=== PATIENT | female | born 1975 | race African-American/Black ===

== ENCOUNTER 2016-06-29 19:10 | Observation (INO) | payer OTHER ==
[~2016-06-29] VITALS: Ht 157.5 cm; Wt 58.2 kg
[2016-06-29] MEDS ORDERED: SODIUM CHLOR 0.9% 1000 ML INJ 1,000 ML IV SCH (19:18)
[2016-06-29] MEDS ORDERED: diphenhydrAMINE HCL 50 MG/ML VIAL IV PUSH ONE (19:30)
[2016-06-29] MEDS ORDERED: LORazepam 2 MG/ML VIAL IM ONE (19:30)
[2016-06-29] MEDS ORDERED: SODIUM CHLORIDE 0.9% FLUSH 10 ML FLUSH IVF PRN (19:30)
[2016-06-29] MEDS ORDERED: HALOPERIDOL LACTATE 5 MG/ML AMP IM ONE (19:30)
--- NOTE | 2016-06-29 19:37 | PD ---
HPI Chief Complaint: acute agitation Time Seen by Provider: 19:18 Travel History International Travel<30 days: No Contact w/Intl Traveler<30days: No (unable to be obtained) History of Present Illness HPI The patient is a 39 something year old appearing female who presents to the [facility] emergency department with a history of being Erickson acted prior to arrival when she was found at a local park, swimming area without clothing on. The patient became agitated, combative, barricaded herself into the bathroom best require physical removal and being Erickson acted for evaluation. The patient continues to be agitated, belligerent. On arrival the patient was restrained for her and the staff's safety. The patient was given medication for sedation. The patient was not able to provide any significant history. [facility] Past Medical History Narrative Medical The patient's past medical history is unknown. Past Surgical History Narrative Surgical The patient's past surgical history is not able to be obtained. Social History Narrative Social History The patient's social history is not able to be obtained. Tobacco Use: No Allergies-Medications (Allergen,Severity, Reaction): Coded Allergies: UNOBTAINABLE (Unverified , 06/29/16) Narrative Medication The patient's current medications are not able to be obtained. Review of Systems Except as stated in HPI: all other systems reviewed are Neg General / Constitutional: No: Fever Eyes: No: Visual changes HENT: No: Headaches Cardiovascular: No: Chest Pain or Discomfort Respiratory: No: Shortness of Breath Gastrointestinal: No: Abdominal Pain Genitourinary: No: Dysuria Musculoskeletal: No: Pain Skin: No Rash Neurologic: No: Weakness Psychiatric: No: Depression Endocrine: No: Polydipsia Hematologic/Lymphatic: No: Easy Bruising Physical Exam Narrative General: The patient is a well-developed well-nourished female, agitated on arrival, screaming, attempting to spit and had the staff. Head and Neck exam: Head is normocephalic atraumatic. Eyes: pupils are equal round and reactive to light. The patient is uncooperative with extraocular motion testing. Nose: Midline septum with pink mucous membranes Mouth: Dentition unremarkable. Moist mucus membranes. Posterior oropharynx is not erythematous. No tonsillar hypertrophy. Uvula midline. Airway patent. Neck: No palpable lymphadenopathy. No nuchal rigidity. No thyromegaly. Cardiovascular: Sinus tachycardia initially in the 130s without murmurs, gallops, or rubs. No pulse deficit to the extremities. Lungs: Clear to auscultation bilaterally. No wheezes, rhonchi, or rales. Abdomen: Soft, without tenderness to palpation in all 4 quadrants of the abdomen. No guarding, rebound, or rigidity. Normal bowel sounds are audible. Extremities: No clubbing, cyanosis, or edema. 2+ pulses in all 4 extremities. Less than 3 second capillary refill of the digits of the extremities Back: No costovertebral angle tenderness to palpation. Neurologic Exam: The patient is uncooperative with formal neurologic testing. The patient is belligerent. The patient has no evidence of facial asymmetry. She has equal movements with 5 over 5 strength in all extremities. She has intact sensation over her limbs. Skin Exam: No rash noted. Intact skin that is warm and dry. Data Data Orders Electrocardiogram (06/29/16 19:18) Ammonia (06/29/16:18) Complete Blood Count With Diff (06/29/16 19:18) Comprehensive Metabolic Panel (06/29/16 19:18) Creatine Kinase (Cpk) (06/29/16 19:18) Prothrombin Time / Inr (Pt) (06/29/16:18) Act Partial Throm Time (Ptt) (06/29/16 19:18) Thyroid Stimulating Hormone (06/29/16 19:18) Urinalysis - C+S If Indicated (06/29/16 19:18) Chest, Single Ap (06/29/16 19:18) Ct Brain W/O Iv Contrast(Rout) (06/29/16 19:18) Blood Glucose (06/29/16 19:18) Ecg Monitoring (06/29/16 19:18) Iv Access Insert/Monitor (06/29/16 19:18) Oximetry (06/29/16 19:18) Sodium Chloride 0.9% Flush (Ns Flush) (06/29/16 19:30) Sodium Chlor 0.9% 1000 Ml Inj (Ns 1000 M (06/29/16 19:18) Drug Screen, Random Urine (06/29/16 19:18) Alcohol (Ethanol) (06/29/16 19:18) Salicylates (Aspirin) (06/29/16 19:18) Tylenol (Acetaminophen) (06/29/16 19:18) Lorazepam Inj (Ativan Inj) (06/29/16 19:30) Haloperidol Inj (Haldol Inj) (06/29/16 19:30) Diphenhydramine Inj (Benadryl Inj) (06/29/16 19:30) Ed Urine Pregnancytest Poc (06/29/16 19:37) Psych Screen (06/29/16 19:37) Restraints Violent (06/29/16 19:37) Sodium Chlor 0.9% 1000 Ml Inj (Ns 1000 M (06/29/16 22:15) Admit Order (Ed Use Only) (06/29/16 22:09) Labs Laboratory Tests Test 06/29/16 06/29/16 19:20 19:30 White Blood Count 15.6 TH/MM3 Red Blood Count 4.61 MIL/MM3 Hemoglobin 13.2 GM/DL Hematocrit 41.4 % Mean Corpuscular Volume 89.8 FL Mean Corpuscular Hemoglobin 28.6 PG Mean Corpuscular Hemoglobin 31.9 % Concent Red Cell Distribution Width 15.6 % Platelet Count 293 TH/MM3 Mean Platelet Volume 11.3 FL Neutrophils (%) (Auto) 46.6 % Lymphocytes (%) (Auto) 39.0 % Monocytes (%) (Auto) 12.3 % Eosinophils (%) (Auto) 1.4 % Basophils (%) (Auto) 0.7 % Neutrophils # (Auto) 7.3 TH/MM3 Lymphocytes # (Auto) 6.1 TH/MM3 Monocytes # (Auto) 1.9 TH/MM3 Eosinophils # (Auto) 0.2 TH/MM3 Basophils # (Auto) 0.1 TH/MM3 CBC Comment AUTO DIFF Differential Total Cells 100 Counted Neutrophils % (Manual) 44 % Lymphocytes % 42 % Monocytes % 8 % Eosinophils % 4 % Basophils % 2 % Neutrophils # (Manual) 6.9 TH/MM3 Differential Comment FINAL DIFF MANUAL Platelet Estimate NORMAL Platelet Morphology Comment NORMAL Acanthocytes OCC Prothrombin Time 11.0 SEC Prothromb Time International 1.0 RATIO Ratio Activated Partial 21.7 SEC Thromboplast Time Sodium Level 144 MEQ/L Potassium Level 4.5 MEQ/L Chloride Level 109 MEQ/L Carbon Dioxide Level 20.6 MEQ/L Anion Gap 14 MEQ/L Blood Urea Nitrogen 12 MG/DL Creatinine 1.31 MG/DL Estimat Glomerular Filtration 42 ML/MIN Rate Random Glucose 147 MG/DL Calcium Level 9.6 MG/DL Total Bilirubin 0.9 MG/DL Aspartate Amino Transf 19 U/L (AST/SGOT) Alanine Aminotransferase 19 U/L (ALT/SGPT) Alkaline Phosphatase 83 U/L Ammonia 112 MCMOL/L Total Creatine Kinase 185 U/L Total Protein 8.5 GM/DL Albumin 4.1 GM/DL Thyroid Stimulating Hormone 1.150 uIU/ML 3rd Gen Salicylates Level 7.4 MG/DL Acetaminophen Level LESS THAN 2.0 MCG/ML Ethyl Alcohol Level LESS THAN 3 MG/DL Urine Color YELLOW Urine Turbidity CLEAR Urine pH 5.5 Urine Specific [place] 1.019 Urine Protein NEG mg/dL Urine Glucose (UA) NEG mg/dL Urine Ketones NEG mg/dL Urine Occult Blood NEG Urine Nitrite NEG Urine Bilirubin NEG Urine Urobilinogen LESS THAN 2.0 MG/DL Urine Leukocyte Esterase SMALL Urine RBC LESS THAN 1 /hpf Urine WBC 2 /hpf Urine Squamous Epithelial 1 /hpf Cells Urine Mucus FEW /lpf Microscopic Urinalysis Comment CATH-CULT NOT IND Urine Opiates Screen NEG Urine Barbiturates Screen NEG Urine Amphetamines Screen NEG Urine Benzodiazepines Screen NEG Urine Cocaine Screen NEG Urine Cannabinoids Screen NEG MDM Medical Decision Making Medical Screen Exam Complete: Yes Emergency Medical Condition: Yes Medical Record Reviewed: Yes Interpretation(s) Last Impressions Chest X-Ray 06/29/161917 Signed Impressions: Service Date/Time: Wednesday, June 29, 2016 19:26 - CONCLUSION: 1. No acute findings. Wan Peace MD Differential Diagnosis Acute psychosis with agitated delirium, versus substance induced mood disorder, versus illicit substance intoxication, versus withdrawal syndrome Narrative Course During the course of the patients emergency department visit, the patients history, examination, and differential diagnosis were reviewed with the patient. The patient had IV access obtained and blood work sent for analysis. The patient was placed in restraints for her and the staff's safety. The patient was provided Ativan 2 mg IV, Haldol milligrams IM, Benadryl 25 mg IV. The patient's Erickson act was reviewed. A psychiatric screen was ordered. The patient was started on normal saline 1 L IV fluid bolus. The patients laboratory studies were reviewed and remarkable for white count of 15.6, hemoglobin 13.2, platelets 293 with neutrophils 46.6, monocytes 12.3. Ammonia level is 112. Radiology studies were reviewed and remarkable for a chest x-ray shows no acute abnormality. The patient on repeat evaluation remains calmer. The patient initially on examination was sleeping after sedation, however she then became more awake and alert. The patient continues to be incoherent, unable to state her name, date of , or age. The patient will therefore be admitted to the medical service for continued monitoring. The patients results were discussed with the patient, including the plan of care. I explained that further testing and/ or monitoring is indicated based on the patients history, examination, and/ or laboratory findings. Therefore, I recommended admission for additional evaluation. The patient expressed understanding and was agreeable with this plan. The patient was admitted to the hospital in guarded condition and sent to a [facility]. Physician Communication Physician Communication The patient's case was discussed with Dr. Carlos who did agree to admit the patient for further evaluation and treatment at this time. Diagnosis Primary Impression: Altered mental state Qualified Code: R41.0 - Delirium Additional Impressions: Acute psychosis Increased ammonia level Admitting Information Admitting Physician Requests: Observation Rowena Gabriel MD Jun 29, 2016 19:37
[2016-06-29 19:59] LABS: AUTOMATED NEUTROPHIL # 7.3 TH/MM3 (1.8-7.7); BASOPHIL # 0.1 TH/MM3 (0-0.2); BASOPHIL % 0.7 % (0.0-2.0); EOSINOPHIL # 0.2 TH/MM3 (0-0.4); EOSINOPHIL % 1.4 % (0.0-4.0); HEMATOCRIT 41.4 % (35.0-46.0); LYMPHOCYTE # 6.1 TH/MM3 (1.0-4.8); MEAN CELL VOLUME 89.8 FL (80.0-100.0); MEAN CORPUSCULAR HEMOGLOBIN 28.6 PG (27.0-34.0); MEAN CORPUSCULAR HGB CONC 31.9 % (32.0-36.0); MONO % 12.3 % (0.0-8.0); NEUT % 46.6 % (16.0-70.0); PLATELET COUNT 293 TH/MM3 (150-450); RED BLOOD COUNT 4.61 MIL/MM3 (4.00-5.30); RED CELL DISTRIBUTION WIDTH 15.6 % (11.6-17.2); WHITE BLOOD COUNT 15.6 TH/MM3 (4.0-11.0)
[2016-06-29 20:10] LABS: HEMO FLAGS AUTO DIFF
--- NOTE | 2016-06-29 20:11 | RADRPT ---
EXAM DATE/TIME: 06/29/2016 19:26 [facility] COMPARISON: No previous studies available for comparison. INDICATIONS : Increase confusion. MEDICAL HISTORY : Unobtainable. SURGICAL HISTORY : Unobtainable. ENCOUNTER: Initial ACUITY: 1 day PAIN SCORE: Non-responsive. LOCATION: Bilateral chest FINDINGS: A single view of the chest demonstrates no focal consolidation. Mild scoliosis. No effusion. No pneum othorax. CONCLUSION: 1. No acute findings. Wan Peace MD on June 29, 2016 at 20:08 Board Certified Radiologist. This report was verified electronically.
[2016-06-29 20:16] LABS: APTT (PATIENT) 21.7 SEC (24.3-30.1)
[2016-06-29 20:26] LABS: BLOOD, URINE NEG (NEG); COMMENT (UR) CATH-CULT NOT IND; CULTURE IF INDICATED CATH CULTURE NOT IND; GLUCOSE,URINE NEG (NEG); KETONE, URINE NEG (NEG); MUCUS URINE FEW /lpf (OCC); NITRITE,URINE NEG (NEG); PH, URINE 5.5 (5.0-8.5); SQUAMOUS EPITHELIAL CELL URINE 1 /hpf (0-5); URINE COLOR YELLOW (YELLW/STRAW)
[2016-06-29 20:29] LABS: ANION GAP 14 MEQ/L (5-15); AST (GOT) 19 U/L (15-37); BICARBONATE 20.6 MEQ/L (21.0-32.0); BLOOD UREA NITROGEN 12 MG/DL (7-18); CHLORIDE 109 MEQ/L (98-107); GLOMERULAR FILTRATION RATE 42 ML/MIN (>89); POTASSIUM 4.5 MEQ/L (3.5-5.1); SODIUM (NA) 144 MEQ/L (136-145)
[2016-06-29 20:37] LABS: ACETAMINOPHEN LESS THAN 2.0 MCG/ML (10.0-30.0); ALKALINE PHOSPHATASE 83 U/L (45-117); ALT (GPT) 19 U/L (10-53); CREATINE KINASE 185 U/L (26-192); TOTAL BILIRUBIN ADULT 0.9 MG/DL (0.2-1.0)
[2016-06-29 20:52] LABS: BASOPHILS 2 % (0-2); EOSINOPHILS 4 % (0-4); NEUTROPHIL # MANUAL DIFF 6.9 TH/MM3 (1.8-7.7); POLYS (SEG NEUTROPHILS) 44 % (16-70); SCAN/DIFF FINAL DIFF MANUAL; WBC DIFF SAMPLE 100
[2016-06-29 20:53] LABS: ACANTHOCYTES OCC (NORMAL); PLATELET ESTIMATE SMEAR NORMAL (NORMAL); PLATELET MORPHOLOGY NORMAL (NORMAL)
[2016-06-29] MEDS ORDERED: SODIUM CHLORIDE 0.9% FLUSH 10 ML FLUSH IV FLUSH PRN (22:15)
[2016-06-29] MEDS ORDERED: LORazepam 2 MG/ML VIAL IV PUSH ONE (22:15)
[2016-06-29] MEDS ORDERED: SODIUM CHLOR 0.9% 1000 ML INJ 1,000 ML IV ONE (22:15)
[2016-06-29] MEDS ORDERED: NALOXONE HCL 0.4 MG/ML AMP IV PRN (22:15)
[2016-06-29 22:29] LABS: AMPHETAMINE, URINE NEG (NEG); BARBITURATES, URINE NEG (NEG); COCAINE, URINE NEG (NEG)
[2016-06-30] VITALS (7 sets, daily range): BP systolic 108–155; BP diastolic 65–85; PULSE 63–106; RESP 14–18; TEMP 95.4–98.1; O2SAT 97–100
[2016-06-30] MEDS: SODIUM CHLOR 0.9% 1000 ML INJ 1,000 ML IV SCH ×3 (02:27→20:43)
[2016-06-30 06:10] LABS: HEMATOCRIT 32.7 % (35.0-46.0); MEAN CELL VOLUME 88.4 FL (80.0-100.0); MEAN CORPUSCULAR HEMOGLOBIN 29.9 PG (27.0-34.0); MEAN CORPUSCULAR HGB CONC 33.9 % (32.0-36.0); PLATELET COUNT 230 TH/MM3 (150-450); RED CELL DISTRIBUTION WIDTH 15.6 % (11.6-17.2); WHITE BLOOD COUNT 10.9 TH/MM3 (4.0-11.0)
[2016-06-30 06:12] LABS: HEMO FLAGS AUTO DIFF
[2016-06-30 06:16] LABS: BICARBONATE 21.8 MEQ/L (21.0-32.0); POTASSIUM 3.9 MEQ/L (3.5-5.1)
[2016-06-30 07:04] LABS: POLYS (SEG NEUTROPHILS) 55 % (16-70); WBC DIFF SAMPLE 100
[2016-06-30 07:05] LABS: PLATELET ESTIMATE SMEAR NORMAL (NORMAL); PLATELET MORPHOLOGY NORMAL (NORMAL); ROULEAUX PRESENT (NORMAL); SCAN/DIFF FINAL DIFF MANUAL
[2016-06-30] MEDS: SODIUM CHLORIDE 0.9% FLUSH 10 ML FLUSH IV FLUSH SCH ×2 (07:59→20:43)
--- NOTE | 2016-06-30 08:02 | RADRPT ---
EXAM DATE/TIME: 06/30/2016 07:47 [facility] COMPARISON: No previous studies available for comparison. INDICATIONS : Altered mental status. RADIATION DOSE: 45.27 CTDIvol (mGy) MEDICAL HISTORY : Non-responsive. SURGICAL HISTORY : Non-responsive. ENCOUNTER: Initial ACUITY: 1 day PAIN SCALE: Non-responsive LOCATION: cranial TECHNIQUE: Multiple contiguous axial images were obtained of the head. Using automated exposure control and adj ustment of the mA and/or kV according to patient size, radiation dose was kept as low as reasonably a chievable to obtain optimal diagnostic quality images. FINDINGS: CEREBRUM: The ventricles are normal for age. No evidence of midline shift, mass lesion, hemorrhage or acute in farction. No extra-axial fluid collections are seen. POSTERIOR FOSSA: The cerebellum and brainstem are intact. The 4th ventricle is midline. The cerebellopontine angle i s unremarkable. EXTRACRANIAL: The visualized portion of the orbits is intact. SKULL: The calvaria is intact. No evidence of skull fracture. CONCLUSION: Negative for an acute process.. Raul Torres MD FACR on June 30, 2016 at 7:59 Board Certified Radiologist. This report was verified electronically.
--- NOTE | 2016-06-30 08:28 | HHI.HP ---
HPI [facility] Primary Care Physician No Primary Care Physician Admission Diagnosis AMS Diagnoses: Chief Complaint: Altered mental status Travel History International Travel<30 Days: No Contact w/Intl Traveler <30 Da: No (unable to be obtained) Traveled to Known Affected Are: No History of Present Illness Patient appears to be a middle age woman who came in under Erickson act after being found at [place] without clothing. On the report, the patient became agitated, combative, barricaded herself in the bathroom requiring physical removal and being Erickson acted for further evaluation. Upon arrival to the hospital, patient continues to be belligerent and agitated she was given Ativan, Haldol, Benadryl and placed on restraints for her safety and staff safety. Patient continues to be drowsy and lethargic, moans and groans with tactile and painful stimulation, partly opening her eyes but unable to respond to any questions or commands. As per RN, patient just came back from [place] , and she was just restrained. Previous labs showed leukocytosis, WBC 15.6, repeat WBC 10.9, repeat CBC showed slight anemia possibly due to hemodilution secondary to IV fluid hydration since admission. U tox negative. Previous ammonia level CXII, repeat ammonia levels 11:00 last night 21. Previous creatinine 1.31, repeat creatinine 0.63. Otherwise, repeat labs is unremarkable. Review of Systems ROS Limitations: Clinical Condition, Altered Mental Status Past Family Social History Past Medical History Unable to obtain this time Past Surgical History Unable to obtain this time Reported Medications Unable to obtain this time Allergies: Coded Allergies: UNOBTAINABLE (Unverified , 06/29/16) Active Ordered Medications Unable to obtain Family History Unable to obtain this time Social History Unable to obtain this time Physical Exam Vital Signs Vital Signs Date Time Temp Pulse Resp B/P Pulse Ox O2 Delivery O2 Flow Rate FiO2 06/30/16 07:56 63 16 155/83 100 Room Air 06/30/16 03:27 73 16 134/85 99 Room Air Physical Exam GENERAL: This is a well-nourished, unkempt, in no apparent distress. SKIN: No rashes, ecchymoses or lesions. Warm and dry. HEAD: Atraumatic. Normocephalic. No temporal or scalp tenderness. EYES: Pupils equal round and reactive. No scleral icterus. No injection or drainage. ENT: Nose without bleeding. Throat without erythema. Uvula midline. Airway patent. NECK: Trachea midline. No JVD or lymphadenopathy. CARDIOVASCULAR: Regular rate and rhythm without murmurs, gallops, or rubs. RESPIRATORY: Coarse breath sounds Breath sounds equal bilaterally. No wheezes, rales, or rhonchi. GASTROINTESTINAL: Abdomen soft, non-tender, nondistended. Hypoactive bowel sounds MUSCULOSKELETAL: Extremities without clubbing, cyanosis, or edema. NEUROLOGICAL: Lethargic. Moans and groans and moving side to side to Tactile and painful stimulation. Unable to follow commands. Moves all extremities. Laboratory Laboratory Tests Test 06/29/16 06/29/16 06/29/16 06/30/16 19:20 19:30 23:20 05:26 White Blood Count 15.6 10.9 Red Blood Count 4.61 3.70 Hemoglobin 13.2 11.1 Hematocrit 41.4 32.7 Mean Corpuscular Volume 89.8 88.4 Mean Corpuscular Hemoglobin 28.6 29.9 Mean Corpuscular Hemoglobin 31.9 33.9 Concent Red Cell Distribution Width 15.6 15.6 Platelet Count 293 230 Mean Platelet Volume 11.3 11.3 Neutrophils (%) (Auto) 46.6 Lymphocytes (%) (Auto) 39.0 Monocytes (%) (Auto) 12.3 Eosinophils (%) (Auto) 1.4 Basophils (%) (Auto) 0.7 Neutrophils # (Auto) 7.3 Lymphocytes # (Auto) 6.1 Monocytes # (Auto) 1.9 Eosinophils # (Auto) 0.2 Basophils # (Auto) 0.1 CBC Comment AUTO DIFF AUTO DIFF Differential Total Cells 100 100 Counted Neutrophils % (Manual) 44 55 Lymphocytes % 42 29 Monocytes % 8 16 Eosinophils % 4 Basophils % 2 Neutrophils # (Manual) 6.9 6.0 Differential Comment FINAL DIFF FINAL DIFF MANUAL MANUAL Platelet Estimate NORMAL NORMAL Platelet Morphology Comment NORMAL NORMAL Acanthocytes OCC Prothrombin Time 11.0 Prothromb Time International 1.0 Ratio Activated Partial 21.7 Thromboplast Time Sodium Level 144 145 Potassium Level 4.5 3.9 Chloride Level 109 115 Carbon Dioxide Level 20.6 21.8 Anion Gap 14 8 Blood Urea Nitrogen 12 7 Creatinine 1.31 0.63 Estimat Glomerular Filtration 42 99 Rate Random Glucose 147 83 Calcium Level 9.6 8.5 Total Bilirubin 0.9 Aspartate Amino Transf 19 (AST/SGOT) Alanine Aminotransferase 19 (ALT/SGPT) Alkaline Phosphatase 83 Ammonia 112 21 Total Creatine Kinase 185 Total Protein 8.5 Albumin 4.1 Thyroid Stimulating Hormone 1.150 3rd Gen Salicylates Level 7.4 Acetaminophen Level LESS THAN 2.0 Ethyl Alcohol Level LESS THAN 3 Urine Color YELLOW Urine Turbidity CLEAR Urine pH 5.5 Urine Specific [place] 1.019 Urine Protein NEG Urine Glucose (UA) NEG Urine Ketones NEG Urine Occult Blood NEG Urine Nitrite NEG Urine Bilirubin NEG Urine Urobilinogen LESS THAN 2.0 Urine Leukocyte Esterase SMALL Urine RBC LESS THAN 1 Urine WBC 2 Urine Squamous Epithelial 1 Cells Urine Mucus FEW Microscopic Urinalysis Comment CATH-CULT NOT IND Urine Opiates Screen NEG Urine Barbiturates Screen NEG Urine Amphetamines Screen NEG Urine Benzodiazepines Screen NEG Urine Cocaine Screen NEG Urine Cannabinoids Screen NEG Rouleau PRESENT Result Diagram: 06/30/16 0526 06/30/16525 Imaging Last Impressions Head CT 06/30/161917 Signed Impressions: Service Date/Time: Thursday, June 30, 2016 07:47 - CONCLUSION: Negative for an acute process.. Raul Torres MD FACR Chest X-Ray 06/29/161917 Signed Impressions: Service Date/Time: Wednesday, June 29, 2016 19:26 - CONCLUSION: 1. No acute findings. Wan Peace MD Assessment and Plan Problem List: (1) Increased ammonia level ICD Code: R79.89 Status: Acute (2) Acute psychosis ICD Code: F23 Status: Acute (3) BEAU (acute kidney injury) ICD Code: N17.9 Status: Acute Assessment and Plan Patient appears to be a middle age woman who came in under Erickson act after being found at [place] without clothing. On the report, the patient became agitated, combative, barricaded herself in the bathroom requiring physical removal and being Erickson acted for further evaluation. Upon arrival to the hospital, patient continues to be belligerent and agitated she was given Ativan, Haldol, Benadryl and placed on restraints for her safety and staff safety. Acute psychosis - Under Erickson act - CT of the head negative for an acute process - Labs reviewed, Previous labs showed leukocytosis, WBC 15.6, repeat WBC 10.9 , repeat CBC showed slight anemia possibly due to hemodilution secondary to IV fluid hydration since admission. Previous ammonia level 112, repeat ammonia levels 21. - U tox negative. UA negative. - Psych for evaluation - Ativan when necessary for agitation. Otherwise, decrease sedation to further evaluate patient. - Neurochecks Elevated ammonia level - Ammonia level 112, repeat 21 - Continue to monitor BEAU - Previous creatinine 1.31 --> 0.63 - Continue IV fluid hydration Anemia, normocytic, normochromic - Monitor H&H - May possibly be hemodilution all secondary to patient has been given IV fluid hydration and previous H&H is within normal DVT prop SCD Discussed with nursing, Dr. Gibson Written by Sallie Taylor, on behalf of Dr. Gibson on 06/30/16 at 08:27. Code Status Not able to ask for this one at this time is Full code. Discussed Condition With Nursing, Dr. Gibson Medical Decision Making MDM Remarks Seen in Emergency room and discussed with [employer]PER[employer]OR Miss Doyle appreciated, agree with management Sallie Morataya Jun 30, 2016 08:28 Fortunato Lyons MD Jun 30, 2016 11:09
[2016-06-30] MEDS ORDERED: LORazepam 2 MG/ML VIAL IV PUSH PRN ×2 (09:00→16:30)
[2016-06-30] MEDS ORDERED: HALOPERIDOL LACTATE 5 MG/ML AMP IM PRN (16:30)
--- NOTE | 2016-06-30 16:33 | PD.CONS ---
Provisional Diagnosis Admission Date Jun 29, 2016 at 22:10 [place] I. Unspecified psychosis [place] II. Deferred History of Present Illness Service Psychiatry Consult Requested By Primary Care Physician No Primary Care Physician HPI The patient is a 39 something year old appearing woman, or known social circumstances, with no psychiatric and medical history, who presents to the [facility] emergency department with a history of being Erickson acted prior to arrival when she was found at a local park, swimming area without clothing on. The patient became agitated, combative, barricaded herself into the bathroom best require physical removal and being Erickson acted for evaluation. The patient continues to be agitated, belligerent non-cooperative. On arrival the patient was restrained for her and the staff's safety. The patient was given medication for sedation. Patient was seen for psychiatric evaluation in the ER, patient was found naked in her bed, very disorganized, no providing any information, seems to be internally preoccupied, guarded paranoid , selectively mute, sometimes she laughs inappropriately and mumble some intangible words. Labs were reviewed, these seems to be unremarkable, toxicology is negative, the only significant finding to the moment is prolonged QTc interval 493ms. Review of Systems ROS Limitations: Unresponsive, Uncooperative Past Family Social History Coded Allergies: UNOBTAINABLE (Unverified , 06/29/16) Current Medications Medications (Trade) Dose Ordered Sig/Sean Route Start Time Stop Time Status Last Admin (NS 1000 ml Inj) 1,000 ml @ 100 mls/hr Q10H IV 06/29/16 22:08 06/30/16 08:18 (NS Flush) 2 ml UNSCH PRN IV FLUSH 06/29/16 22:15 (NS Flush) 2 ml BID IV FLUSH 06/30/16 09:00 (Narcan Inj) 0.4 mg UNSCH PRN IV 06/29/16 22:15 (Ativan Inj) 1 mg Q4H PRN IV PUSH 06/30/16 09:00 Physical Exam Vital Signs Vital Signs Date Time Temp Pulse Resp B/P Pulse Ox O2 Delivery O2 Flow Rate FiO2 06/30/16 12:19 69 17 117/70 100 Room Air 06/30/16 10:35 98.1 Mental Status Examination Limited due to the level of uncooperativeness Appearance woman, disheveled, very malodorous, very dirty, uncooperative, agitated Speech: Incoherent Assessment & Plan Problem List: (1) Acute psychosis Assessment & Plan: Patient definitely internally preoccupied, paranoid, guarded disorganized, laughing inappropriately in fat psychotic. But, no providing any significant information for the psychiatric assessment at this moment. Patient definitely needs psychiatric hospitalization for stabilization. She can be transfer to the psychiatric unit once medically clear , or could be transferred to [facility] is medical care is is still needed. Toxicology is negative, but substance-induced psychosis is is still a possibility, maybe K2 or [place]. We did not have at this moment any information about her psychiatric history. I will start Abilify 5 mg at bedtime for psychosis, Abilify is the least probable antipsychotic to increase QTC. Her QTC is 493. For agitation or aggressive behavior Will order Ativan 2 mg IM/IV every 2 hours when necessary. We'll follow-up in the floor. ICD Code: F23 Assessment & Plan Estimated LOS: Rick Gray MD Jun 30, 2016 16:33
[2016-06-30] MEDS ORDERED: HALOPERIDOL 5 MG TAB PO SCH (21:00)
[2016-06-30] MEDS ORDERED: ARIPiprazole 5 MG TAB PO SCH (21:00)
--- NOTE | 2016-06-30 22:33 | EKG ---
Date Performed: 06/29/2016 Time Performed: 22:03:14 PTAGE: 89 years EKG: SINUS TACHYCARDIA RIGHT ATRIAL ENLARGEMENT NONSPECIFIC T-WAVE ABNORMALITY ABNORMAL ECG NO PREVIOUS TRACING DOCTOR: Henrique Lopez Interpretating Date/Time 06/30/2016 22:32:46
[2016-07-01] VITALS (8 sets, daily range): BP systolic 99–122; BP diastolic 57–80; PULSE 69–86; RESP 16–20; TEMP 96.2–98.3; O2SAT 91–100
[2016-07-01] MEDS: SODIUM CHLOR 0.9% 1000 ML INJ 1,000 ML IV SCH ×2 (04:08→14:08)
--- NOTE | 2016-07-01 08:12 | HHI.PR ---
Subjective Remarks This is a pleasant Female Patient who was admitted under Erickson Act after being found at [employer] swimming without clothing On the report, the patient became agitated, combative, barricaded herself in the bathroom requiring physical removal and being Erickson acted for further evaluation. Upon arrival to the hospital, patient continues to be belligerent and agitated she was given Ativan, Haldol, Benadryl and placed on restraints for her safety and staff safety. Patient continues to be drowsy and lethargic, moans and groans with tactile and painful stimulation, partly opening her eyes but unable to respond to any questions or commands. 07/01: Seen by Psychiatry specialist recommended Inpatient Psychiatric unit admission, Medically cleared for discharge No Nausea, vomit or diarrhea, Nurse Miss Suresh states no needs at this time. Objective Vital Signs Date Time Temp Pulse Resp B/P Pulse Ox O2 Delivery O2 Flow Rate FiO2 07/01/16 04:00 96.2 71 18 110/69 97 07/01/16 02:47 85 07/01/16 00:01 98 07/01/16 00:00 97.6 84 18 122/80 91 06/30/16 20:00 95.4 82 18 135/79 100 06/30/16 16:26 97.4 67 17 108/65 100 06/30/16 12:19 69 17 117/70 100 Room Air 06/30/16 10:35 102 16 100 Room Air 06/30/16 10:35 98.1 106 18 125/81 100 Room Air 06/30/16 09:34 63 14 116/77 97 Room Air I/O 06/30/16 06/30/16 06/30/16 07/01/16 07/01/16 07/01/16 07:00 15:00 23:00 07:00 15:00 23:00 Intake Total 200 ml 480 ml Balance 200 ml 480 ml Intake Oral 200 ml 480 ml # Voids 2 1 # Bowel Movements 0 Result Diagram: 06/30/1652506/30/16525 Imaging Last Impressions Head CT 06/30/161917 Signed Impressions: Service Date/Time: Thursday, June 30, 2016 07:47 - CONCLUSION: Negative for an acute process.. Raul Torres MD FACR Chest X-Ray 06/29/161917 Signed Impressions: Service Date/Time: Wednesday, June 29, 2016 19:26 - CONCLUSION: 1. No acute findings. Wan Peace MD Procedures No procedures performed Other Results Laboratory Tests Test 06/29/16 06/29/16 06/29/16 06/30/16 19:20 19:30 23:20 05:26 Eosinophils % 4 % Basophils % 2 % Acanthocytes OCC Prothrombin Time 11.0 SEC Prothromb Time International 1.0 RATIO Ratio Activated Partial 21.7 SEC Thromboplast Time Total Bilirubin 0.9 MG/DL Aspartate Amino Transf 19 U/L (AST/SGOT) Alanine Aminotransferase 19 U/L (ALT/SGPT) Alkaline Phosphatase 83 U/L Total Creatine Kinase 185 U/L Total Protein 8.5 GM/DL Albumin 4.1 GM/DL Thyroid Stimulating Hormone 1.150 uIU/ML 3rd Gen Salicylates Level 7.4 MG/DL Acetaminophen Level LESS THAN 2.0 MCG/ML Ethyl Alcohol Level LESS THAN 3 MG/DL Urine Color YELLOW Urine Turbidity CLEAR Urine pH 5.5 Urine Specific [place] 1.019 Urine Protein NEG mg/dL Urine Glucose (UA) NEG mg/dL Urine Ketones NEG mg/dL Urine Occult Blood NEG Urine Nitrite NEG Urine Bilirubin NEG Urine Urobilinogen LESS THAN 2.0 MG/DL Urine Leukocyte Esterase SMALL Urine RBC LESS THAN 1 /hpf Urine WBC 2 /hpf Urine Squamous Epithelial 1 /hpf Cells Urine Mucus FEW /lpf Microscopic Urinalysis Comment CATH-CULT NOT IND Urine Opiates Screen NEG Urine Barbiturates Screen NEG Urine Amphetamines Screen NEG Urine Benzodiazepines Screen NEG Urine Cocaine Screen NEG Urine Cannabinoids Screen NEG Ammonia 21 MCMOL/L White Blood Count 10.9 TH/MM3 Red Blood Count 3.70 MIL/MM3 Hemoglobin 11.1 GM/DL Hematocrit 32.7 % Mean Corpuscular Volume 88.4 FL Mean Corpuscular Hemoglobin 29.9 PG Mean Corpuscular Hemoglobin 33.9 % Concent Red Cell Distribution Width 15.6 % Platelet Count 230 TH/MM3 Mean Platelet Volume 11.3 FL Neutrophils (%) (Auto) % Lymphocytes (%) (Auto) % Monocytes (%) (Auto) % Eosinophils (%) (Auto) % Basophils (%) (Auto) % Neutrophils # (Auto) TH/MM3 Lymphocytes # (Auto) TH/MM3 Monocytes # (Auto) TH/MM3 Eosinophils # (Auto) TH/MM3 Basophils # (Auto) TH/MM3 CBC Comment AUTO DIFF Differential Total Cells 100 Counted Neutrophils % (Manual) 55 % Lymphocytes % 29 % Monocytes % 16 % Neutrophils # (Manual) 6.0 TH/MM3 Differential Comment FINAL DIFF MANUAL Platelet Estimate NORMAL Platelet Morphology Comment NORMAL Rouleau PRESENT Sodium Level 145 MEQ/L Potassium Level 3.9 MEQ/L Chloride Level 115 MEQ/L Carbon Dioxide Level 21.8 MEQ/L Anion Gap 8 MEQ/L Blood Urea Nitrogen 7 MG/DL Creatinine 0.63 MG/DL Estimat Glomerular Filtration 99 ML/MIN Rate Random Glucose 83 MG/DL Calcium Level 8.5 MG/DL Objective Remarks GENERAL: No Distress. SKIN: No rashes, ecchymoses or lesions. Warm and dry. HEAD: Atraumatic. Normocephalic. No temporal or scalp tenderness. EYES: No scleral icterus. No injection or drainage. ENT: supple, no JVD. CARDIOVASCULAR: Regular rate and rhythm without murmurs, gallops, or rubs. RESPIRATORY: Clear to auscultation bilateral. MUSCULOSKELETAL: Extremities without clubbing, cyanosis, or edema. NEUROLOGICAL: Somnolent do not want to talk with attending. Medications and IVs Current Medications Medications (Trade) Dose Ordered Sig/Sean Route Start Time Stop Time Status Last Admin (NS 1000 ml Inj) 1,000 ml @ 100 mls/hr Q10H IV 06/29/16 22:08 07/01/16 04:08 (NS Flush) 2 ml UNSCH PRN IV FLUSH 06/29/16 22:15 (NS Flush) 2 ml BID IV FLUSH 06/30/16 09:00 (Narcan Inj) 0.4 mg UNSCH PRN IV 06/29/16 22:15 (Ativan Inj) 1 mg Q4H PRN IV PUSH 06/30/16 09:00 (Haldol Inj) 5 mg Q6H PRN IM 06/30/16 16:30 (Ativan Inj) 2 mg Q6H PRN IV PUSH 06/30/16 16:30 (Abilify) 5 mg HS PO 06/30/16 21:00 06/30/16 20:44 A/P Assessment and Plan 1. Acute Psychosis, as per Psychiatry specialist: definitely internally preoccupied, paranoid, guarded disorganized, laughing inappropriately in fact psychotic. But, no providing any significant information for the psychiatric assessment at this moment. Patient definitely needs psychiatric hospitalization for stabilization. She can be transfer to the psychiatric unit once medically clear, or could be transferred to [facility] is medical care is is still needed. Toxicology is negative, but substance-induced psychosis is is still a possibility, maybe K2 or Flakka. We did not have at this moment any information about her psychiatric history. I will start Abilify 5 mg at bedtime for psychosis, Abilify is the least probable antipsychotic to increase QTC. Her QTC is 493. For agitation or aggressive behavior Will order Ativan 2 mg IM/IV every 2 hours when necessary. We'll follow-up in the floor. As per Doctor Rick Cody. Continue Erickson act. CT Brain negative for acute process. 2. Acute Kidney Injury Improved. DVT prop SCD Discussed with Museum Specialist Discharge Planning Transfer to Inpatient Psychiatric Unit. Fortunato Lyons MD Jul 01, 2016 08:12 - Ammonia level 112, repeat 21 - Continue to monitor BEAU - Previous creatinine 1.31 --> 0.63 - Continue IV fluid hydration Anemia, normocytic, normochromic - Monitor H&H - May possibly be hemodilution all secondary to patient has been given IV fluid hydration and previous H&H is within normal DVT prop SCD Discussed with nursing, Dr. Gibson Written by Sallie Taylor, on behalf of Dr. Gibson on 06/30/16 at 08:27. Code Status Not able to ask for this one at this time is Full code. Discussed Condition With Nursing, Dr. Gibson Medical Decision Making MDM Remarks Seen in Emergency room and discussed with [facility] Miss Vivek monae, agree with management Sallie Morataya Jun 30, 2016 08:28 Fortunato Lyons MD Jun 30, 2016 11:09 Addendum: Fortunato Lyons MD on 06/30/16 @ 16:11 I have seen patient Marivel [id number] on 06/30/16, performed face-face visit, performed history and physical exam, provided all the assessment and plan of treatment. Fortunato Lyons MD Jul 01, 2016 08:12
--- NOTE | 2016-07-01 08:48 | HHI.DS ---
Discharge Summary Admission Date Jun 29, 2016 at 22:10 Discharge Date: Jul 01, 2016 Admitting Diagnosis AMS (1) Acute psychosis ICD Code: F23 Diagnosis: Principal (2) BEAU (acute kidney injury) ICD Code: N17.9 Diagnosis: Principal Procedures No procedures performed. Brief History - From Admission Patient appears to be a middle age woman who came in under Erickson act after being found at [employer] [place] without clothing. On the report, the patient became agitated, combative, barricaded herself in the bathroom requiring physical removal and being Erickson acted for further evaluation. Upon arrival to the hospital, patient continues to be belligerent and agitated she was given Ativan, Haldol, Benadryl and placed on restraints for her safety and staff safety. Patient continues to be drowsy and lethargic, moans and groans with tactile and painful stimulation, partly opening her eyes but unable to respond to any questions or commands. As per RN, patient just came back from [place] , and she was just restrained. Previous labs showed leukocytosis, WBC 15.6, repeat WBC 10.9, repeat CBC showed slight anemia possibly due to hemodilution secondary to IV fluid hydration since admission. U tox negative. Previous ammonia level CXII, repeat ammonia levels 11:00 last night 21. Previous creatinine 1.31, repeat creatinine 0.63. Otherwise, repeat labs is unremarkable. CBC/BMP: 06/30/16 0526 06/30/16 0526 Significant Findings Laboratory Tests Test 06/29/16 06/29/16 06/30/16 19:20 19:30 05:26 White Blood Count 15.6 TH/MM3 (4.0-11.0) Mean Corpuscular Hemoglobin 31.9 % Concent (32.0-36.0) Mean Platelet Volume 11.3 FL 11.3 FL (7.0-11.0) (7.0-11.0) Monocytes (%) (Auto) 12.3 % (0.0-8.0) Lymphocytes # (Auto) 6.1 TH/MM3 (1.0-4.8) Monocytes # (Auto) 1.9 TH/MM3 (0-0.9) Acanthocytes OCC (NORMAL) Activated Partial 21.7 SEC Thromboplast Time (24.3-30.1) Chloride Level 109 MEQ/L 115 MEQ/L (98-107) (98-107) Carbon Dioxide Level 20.6 MEQ/L (21.0-32.0) Creatinine 1.31 MG/DL (0.50-1.00) Estimat Glomerular Filtration 42 ML/MIN (>89) Rate Random Glucose 147 MG/DL (74-106) Ammonia 112 MCMOL/L (11-32) Total Protein 8.5 GM/DL (6.4-8.2) Acetaminophen Level LESS THAN 2.0 MCG/ML (10.0-30.0) Urine Leukocyte Esterase SMALL (NEG) Urine Mucus FEW /lpf (OCC) Red Blood Count 3.70 MIL/MM3 (4.00-5.30) Hemoglobin 11.1 GM/DL (11.6-15.3) Hematocrit 32.7 % (35.0-46.0) Monocytes % 16 % (0-8) Rouleau PRESENT (NORMAL) Imaging Last Impressions Head CT 06/30/161917 Signed Impressions: Service Date/Time: Thursday, June 30, 2016 07:47 - CONCLUSION: Negative for an acute process.. Raul Torres MD FACR Chest X-Ray 06/29/161917 Signed Impressions: Service Date/Time: Wednesday, June 29, 2016 19:26 - CONCLUSION: 1. No acute findings. Wan Peace MD PE at Discharge GENERAL: No Distress. SKIN: No rashes, ecchymoses or lesions. Warm and dry. HEAD: Atraumatic. Normocephalic. No temporal or scalp tenderness. EYES: No scleral icterus. No injection or drainage. ENT: supple, no JVD. CARDIOVASCULAR: Regular rate and rhythm without murmurs, gallops, or rubs. RESPIRATORY: Clear to auscultation bilateral. MUSCULOSKELETAL: Extremities without clubbing, cyanosis, or edema. NEUROLOGICAL: Somnolent do not want to talk with attending. Hospital Course This is a pleasant Female Patient who was admitted under Erickson Act after being found at [employer] [place] without clothing On the report, the patient became agitated, combative, barricaded herself in the bathroom requiring physical removal and being Erickson acted for further evaluation. Upon arrival to the hospital, patient continues to be belligerent and agitated she was given Ativan, Haldol, Benadryl and placed on restraints for her safety and staff safety. Patient continues to be drowsy and lethargic, moans and groans with tactile and painful stimulation, partly opening her eyes but unable to respond to any questions or commands. 07/01: Seen by Psychiatry specialist recommended Inpatient Psychiatric unit admission, Medically cleared for discharge No Nausea, vomit or diarrhea, Nurse Miss Suresh states no needs at this time. Assessment and Plan 1. Acute Psychosis, as per Psychiatry specialist: definitely internally preoccupied, paranoid, guarded disorganized, laughing inappropriately in fact psychotic. But, no providing any significant information for the psychiatric assessment at this moment. Patient definitely needs psychiatric hospitalization for stabilization. She can be transfer to the psychiatric unit once medically clear, or could be transferred to [facility] is medical care is is still needed. Toxicology is negative, but substance-induced psychosis is is still a possibility, maybe K2 or Flakka. We did not have at this moment any information about her psychiatric history. I will start Abilify 5 mg at bedtime for psychosis, Abilify is the least probable antipsychotic to increase QTC. Her QTC is 493. For agitation or aggressive behavior Will order Ativan 2 mg IM/IV every 2 hours when necessary. We'll follow-up in the floor. As per Doctor Rick Cody. Continue Erickson act. CT Brain negative for acute process. 2. Acute Kidney Injury Improved. DVT prop SCD Discussed with Ladle Pourer Discharge Planning Transfer to Inpatient Psychiatric Unit. Pt Condition on Discharge: Stable Discharge Disposition: Disc to Psych Care Fac Discharge Time: <= 30 minutes Discharge Instructions DIET: Follow Instructions for: As Tolerated, No Restrictions Activities you can perform: Regular-No Restrictions Fortunato Lyons MD Jul 01, 2016 08:48
[2016-07-01] MEDS: SODIUM CHLORIDE 0.9% FLUSH 10 ML FLUSH IV FLUSH SCH (09:00)
--- NOTE | 2016-07-01 11:07 | HHI.PYPN ---
Subjective Remarks Patient seen for psychiatric evaluation and the medical floor today, patient continues to be guarded, very paranoid, internally preoccupied, disorganized. She says that she doesn't have to talk with me because she doesn't trust anybody , but god. Patient states that she knows her right "because I have a master, a PhD and I am a genius". Patient says that she has living in the street for a long time now, she has family but she doesn't want to contact. She refused to provide identification data stating that "I had changed my name several times because there are people following me to kill me". She denies suicidal and homicidal ideation, she denies visual and auditory hallucinations. She does say that she will take the Abilify and medications "to get better". Patient does not cooperate with brief cognitive assessment. Patient does not seem to be agitated, she is verbally hostile and irritable, but not aggressive behavior has been reported. Review of Systems Other No significant somatic complaints at this moment Objective Alert: Yes [place]: Person Mood: Angry Affect: Restricted, Blunted Memory Intact: Immediate, Comment (no formally assessed) Hallucinations: Other (she denies) Delusions: Yes Delusion Type: Paranoid, Other (grandeur and hyperreligious) Suicidal: Ideation (she denies) Homicidal: Ideation (she denies) Insight/Judgment Poor Vitals/IOs Vital Signs Date Time Temp Pulse Resp B/P Pulse Ox O2 Delivery O2 Flow Rate FiO2 07/01/16 08:00 97.3 69 20 99/58 98 06/30/16 12:19 Room Air Intake and Output 06/30/16 06/30/16 07/01/16 08:00 16:00 00:00 Intake Total 200 ml 480 ml Balance 200 ml 480 ml Assessment & Plan Problem List: (1) Acute psychosis Assessment & Plan: On psychiatric evaluation today patient continues to be floridly psychotic with marked paranoia, disorganized behavior and thought. Patient seems to have a poor contact with reality and decreased a ego boundaries. Will continue Abilify 5 mg, which patient took yesterday. Will try to avoid medications that increased QTc interval as much as possible, QTc interval yesterday was 493ms. CT scan reviewed, without any acute findings. Renal clearance now is improved. Extensive support, motivation psycho education provided. Patient can be transferred to psychiatry. ICD Code: F23 Assessment & Plan Estimated LOS: days Justification for Cont. Inpt. Patient is acutely psychotic and needs psychiatric hospitalization for stabilization. Rick Cody MD Jul 01, 2016 11:07
== END 2016-07-01 20:55 ==
LOC: EDBD → NEPE 19:10 → NEDA 22:10 → INTOOBSV 22:10 → NEDA 06-30 03:13 → N05A 06-30 13:32
PROVIDERS: ADMIT Internal Medicine; ATTEND Internal Medicine
DX: F23 Brief psychotic disorder (principal); R41.0 Disorientation, unspecified; R45.1 Restlessness and agitation; R00.0 Tachycardia, unspecified; Z78.1 Physical restraint status; D72.829 Elevated white blood cell count, unspecified; R53.83 Other fatigue; N17.9 Acute kidney failure, unspecified; R79.89 Other specified abnormal findings of blood chemistry; D64.9 Anemia, unspecified; I45.81 Long QT syndrome
CPT/HCPCS: 70450; 71010; 80048; 80053; 80307; 81001; 82140; 82550; 84443; 84703; 85007; 85027; 85610; 85730; 93005; 96361; 96372; 96374; 99285; G0378; J1200; J1630; J2060; J7030

== ENCOUNTER 2016-07-01 21:00 | Inpatient (IN) | payer OTHER, MEDICARE ==
[~2016-07-01] VITALS: Ht 175.3 cm; Wt 59.1 kg
[2016-07-01 21:00] VITALS: BP 113/68; PULSE 80; RESP 18; TEMP 98.1; O2SAT 97
[2016-07-01] MEDS ORDERED: LORazepam 2 MG/ML VIAL IM PRN (23:45)
[2016-07-01] MEDS ORDERED: traZODone HCL 50 MG TAB PO PRN (23:45)
[2016-07-01] MEDS ORDERED: ALUMINUM/MAGNESIUM/SIMETH 30 ML CUP PO PRN (23:45)
[2016-07-01] MEDS ORDERED: MAGNESIUM HYDROXIDE SUSP 30 ML CUP PO PRN (23:45)
[2016-07-01] MEDS ORDERED: LORazepam 1 MG TAB PO PRN (23:45)
[2016-07-02 06:08] VITALS: BP 119/62; PULSE 90; RESP 18; TEMP 98.3; O2SAT 98
[2016-07-02] MEDS: NICOTINE 21 MG/24 HR PATCH T-DERMAL SCH (09:00)
--- NOTE | 2016-07-02 12:04 | HHI.PYPN ---
Subjective Remarks Remains agitated, oppositional, emotionally labile and psychotic. Patient not responding adequately to antipsychotics or mood stabilizing medicines yet. Review of Systems ROS Limitations: Clinical Condition Objective Alert: Yes [place]: Person Mood: Agitated Affect: Labile Memory Intact: Immediate, Recent, Remote Hallucinations: Other Delusions: Yes Delusion Type: Other Suicidal: Ideation Homicidal: Ideation Insight/Judgment Impaired. Vitals/IOs Vital Signs Date Time Temp Pulse Resp B/P Pulse Ox O2 Delivery O2 Flow Rate FiO2 07/02/16 06:08 98.3 90 18 119/62 98 Assessment & Plan Problem List: (1) Acute psychosis ICD Code: F23 Assessment & Plan Estimated LOS: 7 days patient needs more time on antipsychotic medication for stabilization. Justification for Cont. Inpt. Psychotic, confused and agitated. Arjun Amador MD Jul 02, 2016 12:04
[2016-07-02] MEDS ORDERED: LORazepam 2 MG/ML VIAL ONE (12:56)
[2016-07-02] MEDS ORDERED: diphenhydrAMINE HCL 50 MG/ML VIAL ONE (12:56)
[2016-07-02] MEDS ORDERED: ZIPRASIDONE MESYLATE 20 MG VIAL IM ONE (12:57)
--- NOTE | 2016-07-02 16:03 | HHI.HP ---
Provisional Diagnosis Admission Date Jul 01, 2016 at 21:00 [place] I. Schizophrenia, paranoid type Certification of Person's Competence To Provide Express and Informed Consent I have personally examined Melida Riggs , a person being served at [facility] on, Jul 02, 2016 15:55. Express and informed consent means consent voluntarily given in writing, by a competent person, after sufficient explanation and disclosure of the subject matter involved to enable the person to make a knowing and willful decision without any element of force, fraud, deceit, duress, or other form of constraint or coercion. This person is 18 years of age or older, is not now known to be incompetent to consent to treatment with a guardian advocate, and does not have a health care surrogate or proxy currently making medical treatment decisions. I have found this person to be one of the following: [] Competent to provide express and informed consent, as defined above, for voluntary admission to this facility and is competent to provide express and informed consent for treatment. He/she has the consistent capacity to make well reasoned, willful, and knowing decisions concerning his or her medical or mental health treatment. The person fully and consistently understands the purpose of the admission for examination/placement and is fully capable of personally exercising all rights assured under [place] [X] Incompetent to provide express and informed consent to voluntary admission, and this is incompetent to provide express and informed consent to treatment. The person must be transferred to involuntary status and a petition for a guardian advocate filed with the Circuit Court. [] Refusing to provide express and informed consent to voluntary admission but is competent to provide express and informed consent for treatment. The person must be discharged or transferred to involuntary status. Form shall be completed within 24 hours of a person's arrival at the receiving facility and filed in the clinical record of each person: 1. Admitted on a voluntary basis 2. Permitted to provide express and informed consent to his/her own treatment 3. Allowed to transfer from involuntary to voluntary status 4. Prior to permitting a person to consent to his or her own treatment after having been previously found incompetent to consent to treatment. History of Present Illness Capacity: Lacks Capacity HPI 41-year-old female admitted under a Marivel Cary as the patient was too psychotic and uncooperative to gather information. She is telling the staff at this facility that we are all going to hel and that we should enjoy it there. She is unable to provide any type of cogent history apparently she does have a history of mental illness. She was Erickson acted here by Dr. Olmstead for psychosis. She was also apparently disorganized and confused. There is however a lack of information regarding the history of how she arrived. Apparently Dr. Olmstead did a consult while the patient was found skinny dipping at [employer] and barricading herself in the bathroom. She had been repeatedly agitated and combative and required injectable Ativan, Haldol and Benadryl as well as restraints. At this time the patient is eating but once again required injectable medication for her agitation which included Geodon, Ativan and Benadryl. She is unable or refusing to provide further information to this physician. Review of Systems ROS Limitations: Clinical Condition Past Psych History Psychological trauma history Unknown Violence risk - others (6 mos) Moderate Violence risk - self (6 mos) Moderate Substance Abuse History Drugs/Alcohol past 12 months Denied Past Family Social History Coded Allergies: UNOBTAINABLE (Unverified , 06/29/16) Current Medications Medications (Trade) Dose Ordered Sig/Sean Route Start Time Stop Time Status Last Admin (Ativan) 1 mg Q6H PRN PO 07/01/16 23:45 (Ativan Inj) 1 mg Q6H PRN IM 07/01/16 23:45 (Desyrel) 50 mg HS PRN PO 07/01/16 23:45 (Tylenol) 650 mg Q4H PRN PO 07/01/16 23:45 (Milk Of Magnesia Liq) 30 ml DAILY PRN PO 07/01/16 23:45 (Mag-Al Plus Susp Liq) 30 ml Q6H PRN PO 07/01/16 23:45 (Habitrol 21 Mg Patch.24 Hr) 1 patch DAILY T-DERMAL 07/02/16 09:00 Miscellaneous Information 1 HS T-DERMAL 07/02/16 21:00 (Abilify) 5 mg HS PO 07/02/16 21:00 Family History Unknown. Refused by patient Social History Unknown. Refused by patient Patient's Strengths (min. 2) Resilient and has access to healthcare. Physical Exam GENERAL: SKIN: Warm and dry. HEAD: Normocephalic. EYES: No scleral icterus. No injection or drainage. NECK: Supple, trachea midline. No JVD or lymphadenopathy. CARDIOVASCULAR: Regular rate and rhythm without murmurs, gallops, or rubs. RESPIRATORY: Breath sounds equal bilaterally. No accessory muscle use. GASTROINTESTINAL: Abdomen soft, non-tender, nondistended. MUSCULOSKELETAL: No cyanosis, or edema. BACK: Nontender without obvious deformity. No CVA tenderness. Vital Signs Vital Signs Date Time Temp Pulse Resp B/P Pulse Ox O2 Delivery O2 Flow Rate FiO2 07/02/16 06:08 98.3 90 18 119/62 98 Mental Status Examination Speech: Incoherent Orientation: Person Memory: Unremarkable Thought Process: Loose Association Thought Content: Bizarre thinking, Paranoid Hallucination Type: Auditory Attention and Concentration: Easily Distracted Suicidal Ideation: Yes Previous Suicide Attempts: No Homicidal Ideation: No Previous Homicide Attempts: No Insight: Poor Judgment: WNL, Poor Affect: Oppositional Affect if Inappropriate: Labile Mood: Oppositional Motor Activity: Normal gait Assessment & Plan Problem List: (1) Acute psychosis ICD Code: F23 Assessment & Plan Estimated LOS: 7 days this physician consulted with the nurse regarding the patient's recent behavior. I am asking the mental health social worker to contact any relative or facility thatthe patient's background. Additionally, she will be evaluated and observed for appropriate medications. This physician notes the elevated QTc interval on her EKG. She has received only emergency medical medicines thus far. We will evaluate her for antipsychotic therapy on a more consistent basis. It's anticipated she'll be in the hospital for 1 week. Arjun Amador MD Jul 02, 2016 16:03
[2016-07-02 17:39] VITALS: BP 96/63; PULSE 74; RESP 16; TEMP 98.8; O2SAT 99
[2016-07-02] MEDS ORDERED: ARIPiprazole 5 MG TAB PO SCH ×2 (21:00→22:00)
[2016-07-02] MEDS: REMOVE OLD NICOTINE PATCH T-DERMAL SCH (21:00)
[2016-07-02 21:26] VITALS: BP 96/63; PULSE 74; RESP 16; TEMP 98.8
[2016-07-02] MEDS ORDERED: LORazepam 2 MG/ML VIAL IM PRN (22:00)
[2016-07-02] MEDS: traZODone HCL 50 MG TAB PO PRN (22:05)
[2016-07-02] MEDS: LORazepam 1 MG TAB PO PRN (22:05)
[2016-07-03 05:37] VITALS: BP 105/64; PULSE 76; RESP 16; TEMP 98.3; O2SAT 96
[2016-07-03] MEDS: NICOTINE 21 MG/24 HR PATCH T-DERMAL SCH (08:48)
--- NOTE | 2016-07-03 15:20 | HHI.PYPN ---
Subjective Remarks Patient was seen and case discussed with nursing. Patient is very delusional and oppositional for the interview. Refuses to make eye contact and is looking out the window. She is irritable and guarded. Answering most questions by reflecting them onto me. Talking about her vibrator. Denies suicidal ideation intent or plan Objective Alert: Yes [place]: Person Mood: Agitated Affect: Labile Memory Intact: Immediate, Recent, Remote Hallucinations: Other (responding to internal stimuli) Delusions: Yes Delusion Type: Other (bizarre) Suicidal: Ideation Homicidal: Ideation Insight/Judgment Poor Vitals/IOs Vital Signs Date Time Temp Pulse Resp B/P Pulse Ox O2 Delivery O2 Flow Rate FiO2 07/03/16 05:37 98.3 76 16 105/64 96 Assessment & Plan Problem List: (1) Acute psychosis ICD Code: F23 Assessment & Plan Increase Abilify to 15 mg daily at bedtime Justification for Cont. Inpt. Patient will decompensate in a less restrictive setting Teo Bermudez DO Jul 03, 2016 15:20
[2016-07-03] MEDS ORDERED: ZIPRASIDONE MESYLATE 20 MG VIAL IM ONE ×2 (15:45→15:46)
[2016-07-03] MEDS ORDERED: diphenhydrAMINE HCL 50 MG/ML VIAL IM ONE (15:45)
[2016-07-03] MEDS ORDERED: LORazepam 2 MG/ML VIAL IM ONE (15:45)
[2016-07-03] MEDS ORDERED: diphenhydrAMINE HCL 50 MG/ML VIAL ONE (15:46)
[2016-07-03] MEDS ORDERED: ARIPiprazole 15 MG TAB PO SCH (21:00)
[2016-07-03] MEDS: REMOVE OLD NICOTINE PATCH T-DERMAL SCH (21:00)
[2016-07-04 05:54] VITALS: BP 114/63; PULSE 81; RESP 18; TEMP 98.7; O2SAT 98
[2016-07-04] MEDS: NICOTINE 21 MG/24 HR PATCH T-DERMAL SCH (09:22)
--- NOTE | 2016-07-04 14:52 | HHI.PYPN ---
Subjective Remarks Patient was seen and case discussed with nursing. Patient remains on no medications well we are waiting for consent. She is guarded and evasive and oppositional during the interview. Poor eye contact. Mood is irritable and patient is short. Denies psychotic symptoms but seen responding to herself Objective Alert: Yes [place]: Person, Place Mood: Oppositional Affect: Labile Memory Intact: Immediate, Recent, Remote Hallucinations: Other (responding to internal stimuli) Delusions: Yes Delusion Type: Other (responding to self) Suicidal: Ideation Homicidal: Ideation Insight/Judgment Poor Vitals/IOs Vital Signs Date Time Temp Pulse Resp B/P Pulse Ox O2 Delivery O2 Flow Rate FiO2 07/04/16 05:54 98.7 81 18 114/63 98 Assessment & Plan Problem List: (1) Acute psychosis ICD Code: F23 Assessment & Plan Patient's Erickson act is up and she does not have capacity for insight to be voluntary we will start a petition Justification for Cont. Inpt. Patient will decompensate in a less restrictive setting Teo Bermudez DO Jul 04, 2016 14:52
[2016-07-04 15:18] VITALS: BP 112/58; PULSE 89; RESP 18; TEMP 98.1; O2SAT 98
[2016-07-04] MEDS: REMOVE OLD NICOTINE PATCH T-DERMAL SCH (21:00)
[2016-07-05] MEDS: NICOTINE 21 MG/24 HR PATCH T-DERMAL SCH (09:00)
--- NOTE | 2016-07-05 11:27 | PD.CONS ---
Provisional Diagnosis Admission Date Jul 01, 2016 at 21:00 [place] I. 1. Brief psychotic disorder Rule out primary psychotic disorder. Rule out mood disorder with psychotic features. Rule out psychotic disorder due to a substance not detected by standard urine toxicology. Rule out resolving delirium due perhaps to hyperammonemia. [place] II. Deferred [place] V. GAF is 40 presently History of Present Illness Service Psychiatry Consult Requested By Dr. Amador Reason for Consult Second opinion for involuntary psychiatric hospitalization Primary Care Physician Unknown HPI From Dr. Amador's H&P: 41-year-old female admitted under a Marivel [place] as the patient was too psychotic and uncooperative to gather information. She is telling the staff at this facility that we are all going to hel and that we should enjoy it there. She is unable to provide any type of cogent history apparently she does have a history of mental illness. She was Erickson acted here by Dr. Olmstead for psychosis. She was also apparently disorganized and confused. There is however a lack of information regarding the history of how she arrived. Apparently Dr. Olmstead did a consult while the patient was found skinny dipping at [facility] and barricading herself in the bathroom. She had been repeatedly agitated and combative and required injectable Ativan, Haldol and Benadryl as well as restraints. At this time the patient is eating but once again required injectable medication for her agitation which included Geodon, Ativan and Benadryl. She is unable or refusing to provide further information to this physician. On my examination today: Patient seen and examined with nurse and counselor. Chart reviewed. I note the patient was brought in initially with altered mental status and was medically admitted and seen in consultation by Dr. Cody. She was receiving small doses of Abilify on the medical floor, although this agent is currently on hold for lack of consent. Case discussed with nurse on the inpatient psychiatric unit. On my examination today, the patient seems more linear and logical then notes from the medical floor would suggest. She tells me that she has been "holding stuff in" referring to some sort of emotional distress. She says that she has been listening to much to other people's problems. She feels that her main problem is smoking cigarettes. She also notes that her mood is somewhat depressed. Her appetite is poor. She denies any suicidal or homicidal thoughts. She denies any audiovisual hallucinations, and I can elicit no frankly delusional beliefs at this time although the nursing staff does say that the patient was somewhat paranoid and watchful overnight. No hypomanic or manic symptoms noted. The remainder of the psychiatric ROS is negative. The patient is presently willing to sign into the hospital voluntarily for treatment. Past psychiatric history: Patient reports a questionable history of schizophrenia, she is unsure of the diagnosis. She does say that she was following with Miguel A over at [facility] and was previously prescribed Abilify, but she cannot afford this medication she says. She says that she has drunk bleach in the past in a suicide attempt. Unclear if she has any prior history of psychiatric admissions. She does report a good response to Seroquel in the past. Family history: Patient is unsure of family history. Chemical dependency history: Patient reports intermittent use of alcohol. She also smokes cigarettes. She denies any other substance use. Social history: Patient reports that she is presently homeless but is on the wait list for some sort of housing. She is with 3 children she says. She has a GED and also pursued some community college in the past. She does some work at a hotel. She does have a history of care home. No reported access to guns or firearms. Review of Systems ROS Limitations: Poor Historian Except as stated in HPI: all other systems reviewed are Neg Past Family Social History Coded Allergies: UNOBTAINABLE (Unverified , 06/29/16) Past Medical History Patient reports that she carry sickle cell trait but does not have sickle cell disorder. See electronic medical record. Current Medications Medications (Trade) Dose Ordered Sig/Sean Route Start Time Stop Time Status Last Admin (Tylenol) 650 mg Q4H PRN PO 07/01/16 23:45 (Milk Of Magnesia Liq) 30 ml DAILY PRN PO 07/01/16 23:45 (Mag-Al Plus Susp Liq) 30 ml Q6H PRN PO 07/01/16 23:45 (Habitrol 21 Mg Patch.24 Hr) 1 patch DAILY T-DERMAL 07/02/16 09:00 07/05/16 09:00 Miscellaneous Information 1 HS T-DERMAL 07/02/16 21:00 (Ativan) 1 mg Q6H PRN PO 07/02/16 22:00 07/02/16 22:05 (Ativan Inj) 1 mg Q6H PRN IM 07/02/16 22:00 (Desyrel) 50 mg HS PRN PO 07/02/16 22:15 07/02/16 22:05 (Abilify) 15 mg HS PO 07/03/16 21:00 Hold Family History See above Social History See above Patient's Strengths (min. 2) In a monitored setting. Verbally fluent. Physical Exam Physical examination completed by ED provider. On my examination today, patient appears to be in no acute physical distress. She is well-nourished and well-developed. I do note that she has several gold teeth. No motor abnormalities noted. No signs of withdrawal noted. Laboratories and vital signs reviewed: Vital Signs Vital Signs Date Time Temp Pulse Resp B/P Pulse Ox O2 Delivery O2 Flow Rate FiO2 07/04/16 15:18 98.1 89 18 112/58 98 Lab Results Item Value Date Time White Blood Count 10.9 TH/MM3 06/30/16 0526 Hemoglobin 11.1 GM/DL L # 06/30/16 0526 Platelet Count 230 TH/MM3 06/30/16 0526 Sodium Level 145 MEQ/L 06/30/16 0526 Potassium Level 3.9 MEQ/L 06/30/16 0526 Chloride Level 115 MEQ/L H 06/30/16 0526 Carbon Dioxide Level 21.8 MEQ/L 06/30/16 0526 Blood Urea Nitrogen 7 MG/DL 06/30/16 0526 Creatinine 0.63 MG/DL 06/30/16 0526 Estimat Glomerular Filtration Rate 99 ML/MIN 06/30/16 0526 Aspartate Amino Transf (AST/SGOT) 19 U/L 06/29/16 1920 Alanine Aminotransferase (ALT/SGPT) 19 U/L 06/29/16 1920 Alkaline Phosphatase 83 U/L 06/29/16 1920 Ammonia 21 MCMOL/L 06/29/16 2320 Thyroid Stimulating Hormone 3rd Gen 1.150 uIU/ML 06/29/16 192 Ammonia level was significantly elevated initially. Urine toxicology was negative. Alcohol level undetectable. Head CT read as no acute disease. Urinalysis fairly bland. ED [id number] test was negative. Mental Status Examination Patient is in hospital gown. She is fairly well groomed and maintaining basic hygiene. She is awake and alert and oriented to person and hospital at least. No evidence of delirium. No motor abnormalities noted. Speech is within normal limits for rate, tone and volume. Language and fund of knowledge seem average. Mood is somewhat depressed and affect is blunted. Thought process somewhat circumstantial. No loosening of associations. No alise delusional material. No AVH. Denies suicidal or homicidal ideation. Insight and judgment seem fair presently. Assessment & Plan Problem List: (1) Acute psychosis ICD Code: F23 Assessment & Plan I am assuming care of patient's case. Patient is presently willing to sign into the hospital voluntarily, and I horse show judge that she is capacitated to do so. I will instruct the nursing staff to have the patient signed voluntary paperwork. The patient reports that she couldn't afford the Abilify she was previously on but has done well with Seroquel in the past. I will start Seroquel 50 mg twice daily for psychosis, which appears to be slowly improving on its own anyway. Continue Ativan as needed for anxiety, add Cogentin as needed for EPS, continue trazodone as needed for sleep. Vitals every shift. Counselor to see and obtain collateral. I will check an H&H to ensure the patient's anemia has not worsening, although I suspect this was dilutional is also lines decreased. Continue to monitor on the high acuity unit. Continue other medications and care as ordered. Discharge Planning Pending psychiatric stabilization. Request HC Surrog/Guard Advoc?: No Abdirahman Henley MD Jul 05, 2016 11:27
[2016-07-05] MEDS ORDERED: BENZTROPINE MESYLATE 1 MG TAB PO PRN (12:00)
[2016-07-05] MEDS ORDERED: BENZTROPINE MESYLATE 2 MG/2 ML VIAL IM PRN (12:00)
[2016-07-05] MEDS: QUEtiapine FUMARATE 25 MG TAB PO SCH ×2 (20:53→22:30)
[2016-07-05] MEDS: traZODone HCL 50 MG TAB PO PRN (20:54)
[2016-07-05 21:00] VITALS: BP 125/78; PULSE 100; RESP 18; TEMP 98.5; O2SAT 95
[2016-07-05] MEDS: REMOVE OLD NICOTINE PATCH T-DERMAL SCH (21:00)
[2016-07-06 06:00] VITALS: BP 99/57; PULSE 86; RESP 18; TEMP 97; O2SAT 97
[2016-07-06] MEDS: NICOTINE 21 MG/24 HR PATCH T-DERMAL SCH (08:59)
[2016-07-06] MEDS: QUEtiapine FUMARATE 25 MG TAB PO SCH ×3 (08:59→23:00)
--- NOTE | 2016-07-06 11:08 | HHI.PYPN ---
Subjective Remarks Patient seen and examined with counselor and nurse. Chart reviewed. Case discussed with counselor, nurse and occupational therapist in treatment team. Per nursing staff, patient seems much improved from the last time nurse had contact with the patient over the weekend. Occupational therapist reports that the patient self describes as somewhat asocial but has been participating appropriately in interactions with occupational therapist. On my examination today, the patient is out for fresh air. She feels improved on the Seroquel. She denies any suicidal or homicidal ideation. She denies any audiovisual hallucinations. She says that she slept well overnight. I have recommended an EKG to follow-up on the QTC issue, but the patient is somewhat hesitant. I have provided education regarding the concerns about QTC prolongation. Review of Systems Except as stated in HPI: all other systems reviewed are Neg Objective Alert: Yes [place]: Person, Place, Date (approximate) Mood: Calm Affect: Blunted Memory Intact: Comment (intact on clinical exam) Hallucinations: Other (denies AVH) Delusions: No Delusion Type: Other (no delusional material) Suicidal: Ideation (denies suicidal ideation) Homicidal: Ideation (denies homicidal ideation) Insight/Judgment Fair Remarks No motor abnormalities noted. Thought process linear. Speech within normal limits for rate, tone and volume. Labs Labs reviewed. No new labs. Vitals/IOs Vital Signs Date Time Temp Pulse Resp B/P Pulse Ox O2 Delivery O2 Flow Rate FiO2 07/06/16 06:00 97.0 86 18 99/57 97 Assessment & Plan Problem List: (1) Acute psychosis ICD Code: F23 Assessment & Plan Continue Seroquel as ordered; I have offered patient further medication adjustments but she feels the dose is adequate. Check an EKG if the patient will allow it. Continue to monitor on the inpatient unit. Continue other medications and care as ordered. Justification for Cont. Inpt. Discharge planning Discharge Planning Anticipate discharge home tomorrow. Case discussed with counselor. Request HC Surrog/Guard Advoc?: No Abdirahman Henley MD Jul 06, 2016 11:08
[2016-07-06] MEDS ORDERED: ZIPRASIDONE MESYLATE 20 MG VIAL IM STA (14:27)
[2016-07-06] MEDS ORDERED: diphenhydrAMINE HCL 50 MG/ML VIAL IM ONE (15:00)
[2016-07-06] MEDS ORDERED: LORazepam 2 MG/ML VIAL IM ONE (15:00)
[2016-07-06] MEDS: REMOVE OLD NICOTINE PATCH T-DERMAL SCH (21:00)
[2016-07-06] MEDS: QUEtiapine FUMARATE 100 MG TAB PO SCH (23:55)
[2016-07-07 05:49] VITALS: BP 111/61; PULSE 95; RESP 18; TEMP 97.3; O2SAT 97
[2016-07-07] MEDS: QUEtiapine FUMARATE 25 MG TAB PO SCH (08:40)
[2016-07-07] MEDS: REMOVE OLD NICOTINE PATCH T-DERMAL SCH (08:41)
[2016-07-07] MEDS: NICOTINE 21 MG/24 HR PATCH T-DERMAL SCH (08:41)
[2016-07-07] MEDS ORDERED: ZIPRASIDONE MESYLATE 20 MG VIAL IM ONE ×2 (11:00→17:15)
[2016-07-07] MEDS ORDERED: LORazepam 2 MG/ML VIAL IM ONE ×2 (11:00→17:15)
[2016-07-07] MEDS ORDERED: diphenhydrAMINE HCL 50 MG/ML VIAL IM ONE ×2 (11:00→17:15)
--- NOTE | 2016-07-07 11:14 | HHI.PYPN ---
Subjective Remarks Extremely agitated and paranoid. KAMLESHN Geodon, Ativan and Benadryl. Seclusion. Patient seen and examined with counselor and nurse. Chart reviewed. Case discussed with nursing staff who reports the patient is agitated and extremely paranoid. I observe the patient yelling in the short acuna outside of the nursing station. When I engage with the patient she is extremely dysphoric and agitated. She is frankly paranoid. She is screaming at me and gesturing to staff on the other side of the door saying, "when they go to the penalty, I wanna watch." She believes that staff members are out to get her and "even Neeraj knows about this shit!" She says that she has been placing calls to the abuse hotline. She remains dangerously agitated and cannot be verbally de- escalated. I have ordered her medicated with Geodon, Ativan and Benadryl IM ETO. She remains agitated after ETO, and I have ordered her placed in locked seclusion for safety. I saw patient within 1 hour as required. No evident side effects from medications. Review of Systems ROS Limitations: Uncooperative, Psychotic, Poor Historian Except as stated in HPI: all other systems reviewed are Neg Objective Alert: Yes [place]: Person, Place, Date (approximate) Mood: Agitated, Angry, Oppositional Affect: Restricted (intensely dysphoric) Memory Intact: Comment (Not assessed) Hallucinations: Other (No AVH) Delusions: Yes Delusion Type: Paranoid (Marked paranoia against staff chiefly) Suicidal: Ideation (No SI) Homicidal: Ideation (No HI but unreliable to contract for safety given level of agitation.) Insight/Judgment Poor Remarks No motor abnormalities noted. Thought process perseverative on delusional material. Speech extremely loud and rambling. Grooming and hygiene fair at best. Labs Labs reviewed. No new labs. Vitals/IOs Vital Signs Date Time Temp Pulse Resp B/P Pulse Ox O2 Delivery O2 Flow Rate FiO2 07/07/16 05:49 97.3 95 18 111/61 97 Assessment & Plan Problem List: (1) Acute psychosis ICD Code: F23 Assessment & Plan Discontinue locked seclusion once safe to do so. Titrate Seroquel to 100 mg twice daily to target psychosis, which is ongoing and presently decompensated to a severe degree. Looking at the totality of the case, I reservations sales supervisor the patient is no longer capacitated to remain in the hospital on a voluntary basis, nor initiate any state to consent for medications. I will initiate a petition for involuntary psychiatric hospitalization and consult for second opinion. I will request a healthcare surrogate and guardian advocate. Violent/assaultive precautions. Continue to monitor on the high acuity unit. Continue other medications and care as ordered. Justification for Cont. Inpt. Impairment in safety. Impairment in reality construction. Impairment in social function. Medication changes in process. High risk for decompensation in a restrictive environment. Discharge Planning Pending psychiatric stabilization. Request HC Surrog/Guard Advoc?: Yes Abdirahman Henley MD Jul 07, 2016 11:14
[2016-07-07] MEDS: QUEtiapine FUMARATE 100 MG TAB PO SCH ×2 (21:00→21:46)
[2016-07-08] MEDS: traZODone HCL 50 MG TAB PO PRN (00:10)
[2016-07-08] MEDS: ACETAMINOPHEN 325 MG TAB PO PRN ×2 (03:12→20:55)
[2016-07-08 05:29] VITALS: BP 129/62; PULSE 111; RESP 18; TEMP 97.6; O2SAT 93
[2016-07-08] MEDS: NICOTINE 21 MG/24 HR PATCH T-DERMAL SCH (09:00)
[2016-07-08] MEDS: QUEtiapine FUMARATE 100 MG TAB PO SCH (09:04)
--- NOTE | 2016-07-08 11:31 | HHI.PYPN ---
Subjective Remarks Patient seen and examined with counselor. Chart reviewed. Case discussed with nursing staff. On my examination today, the patient remains quite irritable and paranoid. She has particularly suspicious of staff. She believes that all of the activity here is "a ridiculous facade." She articulates a belief that there is some sort of "investigation" ongoing. She denies side effects from medications. No other issues noted. Review of Systems ROS Limitations: Psychotic, Poor Historian Except as stated in HPI: all other systems reviewed are Neg Objective Alert: Yes [place]: Person, Place Mood: Angry (remains fairly angry), Oppositional Affect: Restricted (dysphoric) Memory Intact: Comment (Not assessed) Hallucinations: Other (No AVH) Delusions: Yes Delusion Type: Paranoid (ongoing paranoia) Suicidal: Ideation (No SI) Homicidal: Ideation (no HI but remains unreliable to contract for safety) Insight/Judgment Poor Remarks No motor abnormalities noted. Steady gait and station. Thought process perseverative on her paranoid delusional themes. Grooming and hygiene fair. Labs Labs reviewed. Vitals/IOs Vital Signs Date Time Temp Pulse Resp B/P Pulse Ox O2 Delivery O2 Flow Rate FiO2 07/08/16 05:29 97.6 111 18 129/62 93 Assessment & Plan Problem List: (1) Acute psychosis Assessment & Plan: Suspect schizoaffective disorder or possibly bipolar mixed ICD Code: F23 Assessment & Plan Titrate Seroquel to 150 mg twice daily to target ongoing psychosis. Add Geodon as needed for severe agitation. To consider a mood stabilizer. Check a CBC to ensure that anemia is stable. Counselor to obtain collateral from patient's sister. Continue to monitor on the high acuity unit. Continue other medications and care as ordered. Justification for Cont. Inpt. Impairment in reality construction. Impairment in social function. High risk for decompensation in a restrictive environment. Discharge Planning Pending psychiatric stabilization. Request HC Surrog/Guard Advoc?: Yes Abdirahman Henley MD Jul 08, 2016 11:31
[2016-07-08] MEDS ORDERED: ZIPRASIDONE MESYLATE 20 MG VIAL IM PRN (12:00)
[2016-07-08] MEDS ORDERED: PILL SPLITTER OTHER PRN (12:45)
[2016-07-08] MEDS ORDERED: ZIPRASIDONE MESYLATE 20 MG VIAL IM ONE (14:15)
[2016-07-08] MEDS ORDERED: LORazepam 2 MG/ML VIAL IM ONE (14:15)
[2016-07-08 18:01] VITALS: BP 122/66; PULSE 107; RESP 18; TEMP 97.6; O2SAT 99
[2016-07-08] MEDS: REMOVE OLD NICOTINE PATCH T-DERMAL SCH (21:00)
[2016-07-08] MEDS ORDERED: QUEtiapine FUMARATE 100 MG TAB PO SCH (21:00)
[2016-07-09] MEDS: ACETAMINOPHEN 325 MG TAB PO PRN (02:25)
[2016-07-09 05:33] VITALS: BP 113/59; PULSE 104; RESP 18; TEMP 98.4; O2SAT 95
[2016-07-09] MEDS: NICOTINE 21 MG/24 HR PATCH T-DERMAL SCH (09:00)
[2016-07-09 10:55] LABS: AUTOMATED NEUTROPHIL # 2.9 TH/MM3 (1.8-7.7); BASOPHIL % 0.4 % (0.0-2.0); EOSINOPHIL # 0.2 TH/MM3 (0-0.4); EOSINOPHIL % 2.7 % (0.0-4.0); HEMATOCRIT 38.7 % (35.0-46.0); HEMO FLAGS DIFF FINAL; LYMPH % 35.8 % (9.0-44.0); LYMPHOCYTE # 2.2 TH/MM3 (1.0-4.8); MEAN CELL VOLUME 87.4 FL (80.0-100.0); MEAN CORPUSCULAR HEMOGLOBIN 29.5 PG (27.0-34.0); MEAN CORPUSCULAR HGB CONC 33.7 % (32.0-36.0); MONO % 14.7 % (0.0-8.0); NEUT % 46.4 % (16.0-70.0); PLATELET COUNT 290 TH/MM3 (150-450); RED BLOOD COUNT 4.43 MIL/MM3 (4.00-5.30); WHITE BLOOD COUNT 6.3 TH/MM3 (4.0-11.0)
--- NOTE | 2016-07-09 11:20 | HHI.PYPN ---
Subjective Remarks Patient seen and examined with counselor and nurse. Chart reviewed. Case discussed with nursing staff. Patient did not require any doors seen per nursing staff as she remained calm following ETO that she received yesterday afternoon. She refused her EKG. On my examination today, the patient is calm but quite guarded. She insists of the events of the last several days "I want to put that behind me." She minimizes her recent level of agitation insisting "I just defend myself." She denies any audiovisual hallucinations but appears internally preoccupied. Paranoia is present. No side effects from medications. Wants to go back to the Seroquel. I try to reinforce that the patient must remain in behavioral control in order for discharge planning to be undertaken, but the patient is not really listening. Review of Systems ROS Limitations: Psychotic, Poor Historian Except as stated in HPI: all other systems reviewed are Neg Objective Alert: Yes [place]: Person, Place Mood: Other (irritable) Affect: Restricted (dysphoric) Memory Intact: Comment (Not assessed) Hallucinations: Other (denies AVH but appears internally preoccupied) Delusions: Yes Delusion Type: Paranoid (paranoia persists) Suicidal: Ideation (No SI) Homicidal: Ideation (no HI) Insight/Judgment Poor Remarks No motor abnormalities noted. Grooming and hygiene fair. Speech somewhat terse. Labs Test 07/09/16 10:22 White Blood Count 6.3 TH/MM3 Red Blood Count 4.43 MIL/MM3 Hemoglobin 13.1 GM/DL Hematocrit 38.7 % Mean Corpuscular Volume 87.4 FL Mean Corpuscular Hemoglobin 29.5 PG Mean Corpuscular Hemoglobin 33.7 % Concent Red Cell Distribution Width 15.0 % Platelet Count 290 TH/MM3 Mean Platelet Volume 9.6 FL Neutrophils (%) (Auto) 46.4 % Lymphocytes (%) (Auto) 35.8 % Monocytes (%) (Auto) 14.7 % Eosinophils (%) (Auto) 2.7 % Basophils (%) (Auto) 0.4 % Neutrophils # (Auto) 2.9 TH/MM3 Lymphocytes # (Auto) 2.2 TH/MM3 Monocytes # (Auto) 0.9 TH/MM3 Eosinophils # (Auto) 0.2 TH/MM3 Basophils # (Auto) 0.0 TH/MM3 CBC Comment DIFF FINAL Differential Comment Labs reviewed. Anemia improved. Vitals/IOs Vital Signs Date Time Temp Pulse Resp B/P Pulse Ox O2 Delivery O2 Flow Rate FiO2 07/09/16 05:33 98.4 104 18 113/59 95 Assessment & Plan Problem List: (1) Acute psychosis Assessment & Plan: Possibly Schizoaffective disorder versus bipolar mixed ICD Code: F23 Assessment & Plan Discontinue Thorazine and return to Seroquel, 150 mg twice daily. There does seem to be an angry, dysphoric affective component to the patient's illness, and I think that she would benefit from a mood stabilizer. I will add Depakote DR 500 mg twice daily. LFTs and platelets okay. ED [id number] test was negative. Counselor has tried to get in contact with patient's sister for collateral but has been unsuccessful. Continue to monitor on the high acuity unit. Continue other medications and care as ordered. Justification for Cont. Inpt. Impairment in social function. Impairment in reality construction. Medication changes and process. High risk for decompensation in a less restrictive environment. Discharge Planning Pending psychiatric stabilization. Request HC Surrog/Guard Advoc?: Yes Abdirahman Henley MD Jul 09, 2016 11:20
[2016-07-09] MEDS: QUEtiapine FUMARATE 100 MG TAB PO SCH ×2 (12:00→21:06)
--- NOTE | 2016-07-09 14:53 | HHI.PYPN ---
Subjective Remarks Patient seen for second opinion. She remains grossly psychotic, unable to follow direction, threatening and belligerent. Review of Systems ROS Limitations: Clinical Condition Objective Alert: Yes [place]: Person, Place Mood: Angry, Other (irritable) Affect: Labile Memory Intact: Comment (Not assessed) Hallucinations: Other (denies AVH but appears internally preoccupied) Delusions: Yes Delusion Type: Paranoid (paranoia persists) Suicidal: Ideation (No SI) Homicidal: Ideation (no HI) Insight/Judgment Significantly impaired Labs Test 07/09/16 10:22 White Blood Count 6.3 TH/MM3 Red Blood Count 4.43 MIL/MM3 Hemoglobin 13.1 GM/DL Hematocrit 38.7 % Mean Corpuscular Volume 87.4 FL Mean Corpuscular Hemoglobin 29.5 PG Mean Corpuscular Hemoglobin 33.7 % Concent Red Cell Distribution Width 15.0 % Platelet Count 290 TH/MM3 Mean Platelet Volume 9.6 FL Neutrophils (%) (Auto) 46.4 % Lymphocytes (%) (Auto) 35.8 % Monocytes (%) (Auto) 14.7 % Eosinophils (%) (Auto) 2.7 % Basophils (%) (Auto) 0.4 % Neutrophils # (Auto) 2.9 TH/MM3 Lymphocytes # (Auto) 2.2 TH/MM3 Monocytes # (Auto) 0.9 TH/MM3 Eosinophils # (Auto) 0.2 TH/MM3 Basophils # (Auto) 0.0 TH/MM3 CBC Comment DIFF FINAL Differential Comment Vitals/IOs Vital Signs Date Time Temp Pulse Resp B/P Pulse Ox O2 Delivery O2 Flow Rate FiO2 07/09/16 05:33 98.4 104 18 113/59 95 Assessment & Plan Problem List: (1) Acute psychosis ICD Code: F23 Assessment & Plan Estimated LOS: 7 days this physician agrees with the opinion of Dr. Umm goodman. Justification for Cont. Inpt. Psychotic and unable to care for self. Request HC Surrog/Guard Advoc?: Yes Arjun Amador MD Jul 09, 2016 14:53
[2016-07-09 17:36] VITALS: BP 119/65; PULSE 88; RESP 20; TEMP 98.9; O2SAT 96
[2016-07-09] MEDS: REMOVE OLD NICOTINE PATCH T-DERMAL SCH (21:00)
[2016-07-09] MEDS: DIVALPROEX DR 500 MG TABEC PO SCH (21:06)
[2016-07-09] MEDS: LORazepam 1 MG TAB PO PRN (21:08)
[2016-07-10 05:22] VITALS: BP 109/58; PULSE 100; RESP 18; TEMP 98.1; O2SAT 95
[2016-07-10] MEDS: QUEtiapine FUMARATE 100 MG TAB PO SCH ×2 (08:38→20:22)
[2016-07-10] MEDS: DIVALPROEX DR 500 MG TABEC PO SCH ×2 (08:38→20:22)
[2016-07-10] MEDS: LORazepam 1 MG TAB PO PRN (08:38)
[2016-07-10] MEDS: NICOTINE 21 MG/24 HR PATCH T-DERMAL SCH (08:39)
--- NOTE | 2016-07-10 13:23 | HHI.PYPN ---
Subjective Remarks Pt seen and discussed with nursing staff. Pt has been withdrawn on unit, but cooperative with care today. Irritability persists. She is less disorganized but remains paranoid and delusional. No SI/HI Objective Alert: Yes [place]: Person, Place Mood: Other (irritable) Affect: Labile (decreased) Memory Intact: Comment (Not assessed) Hallucinations: Other (denies AVH but appears internally preoccupied) Delusions: Yes Delusion Type: Paranoid Suicidal: Ideation (No SI) Homicidal: Ideation (no HI) Insight/Judgment poor Vitals/IOs Vital Signs Date Time Temp Pulse Resp B/P Pulse Ox O2 Delivery O2 Flow Rate FiO2 07/10/16 05:22 98.1 100 18 109/58 95 Assessment & Plan Problem List: (1) Acute psychosis ICD Code: F23 Assessment & Plan Continue current tx plan. Estimated LOS: days Justification for Cont. Inpt. impairments in reality construction Request HC Surrog/Guard Advoc?: Yes Claudine Da Silva MD Jul 10, 2016 13:23
[2016-07-10] MEDS: ACETAMINOPHEN 325 MG TAB PO PRN (13:52)
[2016-07-10 18:17] VITALS: BP 109/55; PULSE 103; RESP 18; TEMP 98.3; O2SAT 95
[2016-07-10] MEDS: REMOVE OLD NICOTINE PATCH T-DERMAL SCH (20:44)
[2016-07-11 05:31] VITALS: BP 97/71; PULSE 100; RESP 18; TEMP 97.9; O2SAT 96
[2016-07-11] MEDS: NICOTINE 21 MG/24 HR PATCH T-DERMAL SCH (09:00)
[2016-07-11] MEDS: QUEtiapine FUMARATE 100 MG TAB PO SCH ×2 (09:34→20:51)
[2016-07-11] MEDS: DIVALPROEX DR 500 MG TABEC PO SCH ×2 (09:35→20:51)
--- NOTE | 2016-07-11 16:39 | HHI.PYPN ---
Subjective Remarks Pt seen and discussed with staff. She states that she is feeling better today and mood is more calm. She is compliant with medications and denies side effects. No aggression or disruptive behavior on unit. No SI/HI Objective Alert: Yes [place]: Person, Place Mood: Calm Affect: Restricted Memory Intact: Comment (Not assessed) Hallucinations: Other (no AVH) Delusions: Yes Delusion Type: Paranoid (decreased) Suicidal: Ideation (No SI) Homicidal: Ideation (no HI) Insight/Judgment fair Vitals/IOs Vital Signs Date Time Temp Pulse Resp B/P Pulse Ox O2 Delivery O2 Flow Rate FiO2 07/11/16 05:31 97.9 100 18 97/71 96 Assessment & Plan Problem List: (1) Acute psychosis ICD Code: F23 Assessment & Plan Pt improving.Continue current tx plan. Estimated LOS: days Justification for Cont. Inpt. impairments in reality construction. risk of decompensation Request HC Surrog/Guard Advoc?: Yes Claudine Da Silva MD Jul 11, 2016 16:39
[2016-07-11 17:50] VITALS: BP 115/66; PULSE 100; RESP 18; TEMP 97.5; O2SAT 88
[2016-07-11] MEDS: REMOVE OLD NICOTINE PATCH T-DERMAL SCH (21:00)
[2016-07-12 05:53] VITALS: BP 100/57; PULSE 96; RESP 18; TEMP 94.4; O2SAT 97
[2016-07-12] MEDS: QUEtiapine FUMARATE 100 MG TAB PO SCH ×2 (08:35→20:24)
[2016-07-12] MEDS: DIVALPROEX DR 500 MG TABEC PO SCH ×2 (08:35→20:24)
[2016-07-12] MEDS: NICOTINE 21 MG/24 HR PATCH T-DERMAL SCH (08:44)
--- NOTE | 2016-07-12 10:08 | HHI.PYPN ---
Subjective Remarks Patient seen and examined with counselor. Chart reviewed. Case discussed with nursing staff who reports that the patient is growing somewhat more clear and is more insightful. On my examination today, the patient reports that she feels like she is improving. She slept well overnight. She denies any SI or HI. Denies any AVH. She admits that she "go[es] through stages" of medication nonadherence. She denies side effects from medications. She would like to go stay with her brother on discharge and his given counselor the number to call for discharge planning. Review of Systems Except as stated in HPI: all other systems reviewed are Neg Objective Alert: Yes Ovando: Person, Place Mood: Calm Affect: Blunted Memory Intact: Comment (seems fair on clinical exam) Hallucinations: Other (denies AVH) Delusions: No Delusion Type: Other (no delusions) Suicidal: Ideation (denies SI) Homicidal: Ideation (denies HI) Insight/Judgment Perhaps improving somewhat Remarks No motor abnormalities noted Labs Test 07/12/16 08:59 Ammonia 13 MCMOL/L Valproic Acid (Depakene) Level 71 MCG/ML Labs reviewed Vitals/IOs Vital Signs Date Time Temp Pulse Resp B/P Pulse Ox O2 Delivery O2 Flow Rate FiO2 07/12/16 05:53 94.4 96 18 100/57 97 Assessment & Plan Problem List: (1) Schizophrenia ICD Code: F20.9 Assessment & Plan Continue Seroquel and Depakote as ordered. Depakote level is within the therapeutic range. In light of patient's high level of agitation and psychosis before the weekend, I would like to observe the patient at least overnight to ensure that the therapeutic gains that we have observed today persist. If she remains improved tomorrow, we could consider discharge at that time. Continue other medications and care as ordered. Justification for Cont. Inpt. Final discharge planning. Confirm improvements in reality construction and social function. Discharge Planning Anticipate discharge tomorrow into brother's care barring some clinical deterioration Request HC Surrog/Guard Advoc?: Yes Problem Qualifiers (1) Schizophrenia: Qualified Code: F20.0 - Paranoid schizophrenia Abdirahman Henley MD July 12, 2016 10:07
[2016-07-12 17:13] VITALS: BP 108/54; PULSE 107; RESP 18; TEMP 97.9; O2SAT 96
[2016-07-12] MEDS: REMOVE OLD NICOTINE PATCH T-DERMAL SCH (20:24)
[2016-07-12] MEDS: traZODone HCL 50 MG TAB PO PRN (20:24)
[2016-07-13 05:52] VITALS: BP 112/55; PULSE 111; RESP 18; TEMP 98.3; O2SAT 96
[2016-07-13] MEDS: QUEtiapine FUMARATE 100 MG TAB PO SCH (08:59)
[2016-07-13] MEDS: DIVALPROEX DR 500 MG TABEC PO SCH (09:00)
[2016-07-13] MEDS: NICOTINE 21 MG/24 HR PATCH T-DERMAL SCH (09:00)
[2016-07-13] MEDS ORDERED: DIVA500T PO (09:34)
[2016-07-13] MEDS ORDERED: QUET1TAB8 PO (09:34)
--- NOTE | 2016-07-13 09:34 | HHI.DS ---
Psychiatry Discharge Summary Inpatient Psychiatric care?: Yes Advance Directive: No Reason Not Provided: Mental Health AdvanceDirective: No Health Care Proxy: No Admission Admission Date Jul 01, 2016 at 21:00 Admission Diagnosis: (1) Acute psychosis ICD Code: F23 Brief History 41-year-old female admitted under a Marievl Kleine as the patient was too psychotic and uncooperative to gather information. She is telling the staff at this facility that we are all going to hel and that we should enjoy it there. She is unable to provide any type of cogent history apparently she does have a history of mental illness. She was Erickson acted here by Dr. Olmstead for psychosis. She was also apparently disorganized and confused. There is however a lack of information regarding the history of how she arrived. Apparently Dr. Omlstead did a consult while the patient was found skinny dipping at [facility] and barricading herself in the bathroom. She had been repeatedly agitated and combative and required injectable Ativan, Haldol and Benadryl as well as restraints. At this time the patient is eating but once again required injectable medication for her agitation which included Geodon, Ativan and Benadryl. She is unable or refusing to provide further information to this physician. Tobacco Use In Past 30 Days: 5 or More Cigarettes/Day Alcohol Use: 2-4 Times Per Month Hospital Course Patient was admitted to a locked, inpatient psychiatric unit. Appropriate precautions were in place throughout patient's hospital stay. Patient was seen and examined daily on the unit by psychiatry and also visited by counselor. Medications were adjusted. Patient tolerated medications well without side effects. There is no evidence of any suicidality or homicidality on the inpatient unit. Patient's behavior was initially quite disturbed in the setting of her acutely decompensated psychosis. However, with the benefit of psychopharmacologic treatment, her psychosis improved and her behavior stabilized and she remained in good behavioral control towards the end of her hospital stay. On the day of discharge: Patient seen and examined with counselor and nursing staff. Chart reviewed. Case discussed with nurse, counselor and recreation therapist in treatment team. No behavioral issues noted. On my examination today, the patient is in good spirits. She is future oriented. She is requesting discharge from the inpatient psychiatric unit today. She reports that her mood is stable and I can elicit no ongoing depressive or hypomanic/manic symptoms. She denies any audiovisual hallucinations, nor can I elicit any delusional beliefs at this time. She denies any suicidal or homicidal ideation, intent or plan on direct questioning. She denies any side effects from medications aside some mild constipation and dry mouth, and we discuss measures that she can take on an outpatient basis to manage the side effects including the use of Biotene mouthwash and [id number] laxatives/stool softeners. She has no physical complaints. Weighing the acute, chronic, and protective factors and based on the available evidence, I engineering illustrator to a reasonable degree of medical certainty that the patient is at low imminent risk of harm to self or others from a mental illness as defined under the Erickson act and her level of function is adequate for outpatient care. Consequently, the patient does not meet criteria for involuntary psychiatric hospitalization at this time. Given that she does not meet criteria for ongoing involuntary psychiatric hospitalization and given that she is requesting discharge from the inpatient psychiatric unit today, I must arrange for her discharge today with psychiatric follow-up as arranged by counselor. Patient is also to follow-up with primary care. I counseled the patient regarding warning signs for need to return to the psychiatric emergency room as part of the general safety plan. Results Blood Pressure 112 / 55 Vital Signs Date Time Temp Pulse Resp B/P Pulse Ox O2 Delivery O2 Flow Rate FiO2 07/13/16 05:52 98.3 111 18 112/55 96 Laboratory Results Test 07/12/16 08:59 Valproic Acid (Depakene) Level 71 MCG/ML (50-100) Summary of Procedures None done Imaging None done Pending results at discharge: No Medications # of Antipsychotic meds at D/C: 1 Approp Antipsych med options 1 - Minimum of three failed multiple trials of monotherapy. 2 - Documented plan to taper to monotherapy due to previous use of multiple meds OR cross-taper in progress at D/C. 3 - Documentation of augmentation of Clozapine. 4 - Justification other than those listed in allowable values 1-3, document here : Discharge Discharge Date: July 13, 2016 Discharge Diagnosis: (1) Schizophrenia Diagnosis: Principal (stabilized) ICD Code: F20.9 GAF on discharge is 55. Mental Status Exam at Disch Patient is casually dressed. She is well groomed and maintaining basic hygiene. She is awake and alert and oriented 3. No evidence of delirium. No motor abnormalities noted. Speech is within normal limits for rate, tone and volume. When which and fund of knowledge seem average. Mood is fair and affect is blunted. Thought process linear. No loosening of associations. No evident delusions. Denies audiovisual hallucinations. Denies suicidal or homicidal ideation, intent or plan. Insight and judgment are fair. Pt Condition on Discharge: Stable Discharge Disposition: Discharge Home Discharge Instructions Diet Instructions: As Tolerated, No Restrictions Activities you can perform: Weight Bearing as Sandra Scheduled Appointment: as per counselor's notes New Medications: Divalproex DR (Divalproex DR) 500 Mg Tabdr 500 MG PO BID Mental Health Days 15 Ref 1 TAB Quetiapine (Quetiapine) 100 Mg Tab 150 MG PO BID Mental Health Days 15 Ref 1 TAB Discharge Time <= 30 minutes Discharge/Advance Care Plan Health Problems: (1) Schizophrenia Goals to promote your health * To prevent worsening of your condition and complications * To maintain your health at the optimal level Directions to meet your goals Take your medications as prescribed Follow your dietary instruction Follow activity as directed Keep your appointments as scheduled Take your immunizations and boosters as scheduled If your symptoms worsen call your PCP, if no PCP go to Urgent Care Center or Emergency Room For 04/10 questions related to your inpatient stay or results of tests pending at discharge, please contact Dr. Abdirahman Henley at Smoking is Dangerous to Your Health. Avoid second hand smoking Problem Qualifiers (1) Schizophrenia: Qualified Code: F20.0 - Paranoid schizophrenia Abdirahman Henley MD July 13, 2016 09:34
== END 2016-07-13 13:10 | disposition home or self-care (01) | DRG 885 ==
LOC: EDBD 21:00 → H270 21:00
PROVIDERS: ADMIT Psychiatry & Neurology Psychiatry; ATTEND Psychiatry & Neurology Psychiatry
DX: F20.0 Paranoid schizophrenia (principal); N17.9 Acute kidney failure, unspecified; Z78.1 Physical restraint status; Z59.0 Homelessness; D57.3 Sickle-cell trait; F17.210 Nicotine dependence, cigarettes, uncomplicated; R45.1 Restlessness and agitation; K59.00 Constipation, unspecified; R68.2 Dry mouth, unspecified; R00.0 Tachycardia, unspecified; D72.829 Elevated white blood cell count, unspecified; R53.83 Other fatigue; R79.89 Other specified abnormal findings of blood chemistry; D64.9 Anemia, unspecified; I45.81 Long QT syndrome
CPT/HCPCS: 70450; 71010; 80048; 80053; 80164; 80307; 81001; 82140; 82550; 84443; 84703; 85007; 85025; 85027; 85610; 85730; 93005; 96361; 96372; 96374; G0378; J1200; J1630; J2060; J3486; J7030

== ENCOUNTER 2016-07-18 11:42 | Inpatient (IN) | payer OTHER, MEDICARE ==
[~2016-07-18 11:42] MED LIST: DIVA500T PO; QUET1TAB8 PO
[2016-07-18 14:00] VITALS: BP 124/76; PULSE 67; RESP 16; TEMP 97.4; O2SAT 97
[2016-07-18] MEDS ORDERED: LORazepam 2 MG/ML VIAL IM PRN (14:00)
[2016-07-18] MEDS ORDERED: ALUMINUM/MAGNESIUM/SIMETH 30 ML CUP PO PRN (14:00)
[2016-07-18] MEDS ORDERED: PILL SPLITTER OTHER PRN (14:00)
[2016-07-18] MEDS ORDERED: LORazepam 1 MG TAB PO PRN (14:00)
[2016-07-18] MEDS ORDERED: MAGNESIUM HYDROXIDE SUSP 30 ML CUP PO PRN (14:00)
[2016-07-18] MEDS ORDERED: BENZTROPINE MESYLATE 2 MG/2 ML VIAL IM PRN (14:00)
[2016-07-18] MEDS ORDERED: QUEtiapine FUMARATE 100 MG TAB PO SCH (21:00)
[2016-07-19 05:50] VITALS: BP 124/61; PULSE 75; RESP 15; TEMP 98.9; O2SAT 97
[2016-07-19] MEDS: NICOTINE 21 MG/24 HR PATCH T-DERMAL SCH (09:00)
[2016-07-19 09:02] LABS: BASOPHIL # 0.1 TH/MM3 (0-0.2); BASOPHIL % 0.9 % (0.0-2.0); EOSINOPHIL # 0.2 TH/MM3 (0-0.4); EOSINOPHIL % 3.4 % (0.0-4.0); HEMATOCRIT 37.1 % (35.0-46.0); HEMO FLAGS DIFF FINAL; LYMPH % 40.8 % (9.0-44.0); LYMPHOCYTE # 2.7 TH/MM3 (1.0-4.8); MEAN CORPUSCULAR HEMOGLOBIN 28.7 PG (27.0-34.0); MEAN CORPUSCULAR HGB CONC 32.3 % (32.0-36.0); MONO % 9.6 % (0.0-8.0); NEUT % 45.3 % (16.0-70.0); PLATELET COUNT 353 TH/MM3 (150-450); RED BLOOD COUNT 4.17 MIL/MM3 (4.00-5.30); RED CELL DISTRIBUTION WIDTH 15.7 % (11.6-17.2); WHITE BLOOD COUNT 6.6 TH/MM3 (4.0-11.0)
[2016-07-19 09:47] LABS: ALKALINE PHOSPHATASE 87 U/L (45-117); ALT (GPT) 15 U/L (10-53); ANION GAP 7 MEQ/L (5-15); AST (GOT) 10 U/L (15-37); BICARBONATE 26.9 MEQ/L (21.0-32.0); BLOOD UREA NITROGEN 9 MG/DL (7-18); CHLORIDE 109 MEQ/L (98-107); GLOMERULAR FILTRATION RATE 106 ML/MIN (>89); LDL CHOLESTEROL 84 MG/DL (0-99); POTASSIUM 3.7 MEQ/L (3.5-5.1); SODIUM (NA) 143 MEQ/L (136-145); TOTAL BILIRUBIN ADULT 0.8 MG/DL (0.2-1.0)
--- NOTE | 2016-07-19 09:56 | HHI.HP ---
Provisional Diagnosis Admission Date July 18, 2016 at 13:38 [place] I. 1. Schizophrenia, paranoid type, acute exacerbation [place] II. Deferred [place] V. GAF is 30 presently Certification of Person's Competence To Provide Express and Informed Consent I have personally examined Melida Riggs , a person being served at [facility] on, July 19, 2016 09:56. Express and informed consent means consent voluntarily given in writing, by a competent person, after sufficient explanation and disclosure of the subject matter involved to enable the person to make a knowing and willful decision without any element of force, fraud, deceit, duress, or other form of constraint or coercion. This person is 18 years of age or older, is not now known to be incompetent to consent to treatment with a guardian advocate, and does not have a health care surrogate or proxy currently making medical treatment decisions. I have found this person to be one of the following: [] Competent to provide express and informed consent, as defined above, for voluntary admission to this facility and is competent to provide express and informed consent for treatment. He/she has the consistent capacity to make well reasoned, willful, and knowing decisions concerning his or her medical or mental health treatment. The person fully and consistently understands the purpose of the admission for examination/placement and is fully capable of personally exercising all rights assured under [place] [x] Incompetent to provide express and informed consent to voluntary admission, and this is incompetent to provide express and informed consent to treatment. The person must be transferred to involuntary status and a petition for a guardian advocate filed with the Circuit Court. [] Refusing to provide express and informed consent to voluntary admission but is competent to provide express and informed consent for treatment. The person must be discharged or transferred to involuntary status. Form shall be completed within 24 hours of a person's arrival at the receiving facility and filed in the clinical record of each person: 1. Admitted on a voluntary basis 2. Permitted to provide express and informed consent to his/her own treatment 3. Allowed to transfer from involuntary to voluntary status 4. Prior to permitting a person to consent to his or her own treatment after having been previously found incompetent to consent to treatment. History of Present Illness Capacity: Lacks Capacity HPI Ms. Riggs is a 41-year-old female with a history of schizophrenia who was sent in transfer from [facility] under a Erickson act. Documentation from outside hospital reviewed. Patient was apparently discovered by EVAC walking down the street knocking on doors. Patient is known to me and was recently discharged from the inpatient psychiatric unit about 5 days ago. Electronic medical record reviewed. Patient seen and examined. Chart reviewed. Case discussed with nursing staff. Nursing staff relates that the medications that the patient was discharged from here with last time were transferred with the patient, and these were unopened. On my examination today, the patient presents with a silly, somewhat giddy affect. She giggles to herself inappropriately. She appears internally stimulated. Thought process disorganized. Speech rambling. She says "I been fasting. I wish I was LMA - Leave Me Alone." Makes other random comments like , "stick, stick, tape, stickin'." Sleep is reportedly poor. Denies any suicidal or homicidal ideation but is unreliable to contract for safety. The remainder of the psychiatric ROS is negative. Past psychiatric history: Patient denies any interval psychiatric admissions or suicide attempts. She has a history of schizophrenia. Family history, chemical dependency history and social history are unchanged from my assessment on 07/05, [id number]. Review of Systems ROS Limitations: Psychotic, Poor Historian Except as stated in HPI: all other systems reviewed are Neg Past Psych History Psychological trauma history No reported trauma history. Violence risk - others (6 mos) Indeterminate. Patient is psychotic and unpredictable. Violence risk - self (6 mos) Indeterminate. Patient is psychotic and unpredictable. Substance Abuse History Drugs/Alcohol past 12 months See above Past Family Social History Coded Allergies: UNOBTAINABLE (Unverified , 06/29/16) Past Medical History See EMR Active Scripts Quetiapine 100 Mg [id number] Mg PO BID 15 Days Ref 1 Prov:Abdirahman Henley MD 07/13/[address] 500 Mg [id number] Mg PO BID 15 Days Ref 1 Prov:Abdirahman Henley MD 07/13/16 Current Medications Medications (Trade) Dose Ordered Sig/Sean Route Start Time Stop Time Status Last Admin (Ativan) 1 mg Q6H PRN PO 07/18/16 14:00 Hold (Ativan Inj) 1 mg Q6H PRN IM 07/18/16 14:00 Hold (Benadryl) 50 mg HS PRN PO 07/18/16 21:00 Hold (Tylenol) 650 mg Q4H PRN PO 07/18/16 14:00 (Milk Of Magnesia Liq) 30 ml DAILY PRN PO 07/18/16 14:00 (Mag-Al Plus Susp Liq) 30 ml Q6H PRN PO 07/18/16 14:00 (Habitrol 21 Mg Patch.24 Hr) 1 patch DAILY T-DERMAL 07/19/16 09:00 (Cogentin) 1 mg Q12H PRN PO 07/18/16 14:00 (Cogentin Inj) 1 mg Q12H PRN IM 07/18/16 14:00 Miscellaneous Information 1 DAILY T-DERMAL 07/20/16 09:00 (Depakote Dr) 500 mg BID PO 07/18/16 21:00 Hold (SEROquel) 150 mg BID PO 07/18/16 21:00 Hold (Pill Splitter) 1 ea UNSCH PRN OTHER 07/18/16 14:00 Family History See above Social History See above Patient's Strengths (min. 2) In a monitored setting. Verbally fluent. Physical Exam Physical examination completed at outside hospital. On my examination today, patient is in no acute physical distress. No motor abnormalities noted. Laboratories and vital signs reviewed: Vital Signs Vital Signs Date Time Temp Pulse Resp B/P Pulse Ox O2 Delivery O2 Flow Rate FiO2 07/19/16 05:50 98.9 75 15 124/61 97 Lab Results Item Value Date Time White Blood Count 6.6 TH/MM3 07/19/16 0722 Hemoglobin 12.0 GM/DL 07/19/16 0722 Platelet Count 353 TH/MM3 07/19/16 0722 Sodium Level 143 MEQ/L 07/19/16 0722 Potassium Level 3.7 MEQ/L 07/19/16 0722 Chloride Level 109 MEQ/L H 07/19/16 0722 Carbon Dioxide Level 26.9 MEQ/L 07/19/16 0722 Blood Urea Nitrogen 9 MG/DL 07/19/16 0722 Creatinine 0.73 MG/DL 07/19/16 0722 Aspartate Amino Transf (AST/SGOT) 10 U/L L 07/19/16 0722 Alanine Aminotransferase (ALT/SGPT) 15 U/L 07/19/16 0722 Alkaline Phosphatase 87 U/L 07/19/16 0722 Labs from outside hospital reviewed: UA trace LE but 3 WBCs. UTox neg. Mental Status Examination Patient is in hospital gown. She is awake and alert and oriented to person. No motor abnormalities noted. Speech is somewhat rambling. Language and fund of knowledge are difficult to assess because of her degree of thought disorganization. Mood is difficult to assess given thought disorganization and affect is somewhat silly and giddy. Thought process disorganized. Associations loose. Possibly some underlying paranoia. Patient appears internally stimulated. Denies suicidal or homicidal ideation but is unreliable to contract for safety in her present state. Insight and judgment are poor. Assessment & Plan Problem List: (1) Schizophrenia ICD Code: F20.9 Assessment & Plan This is a 41-year-old female with a history of schizophrenia recently discharged from the inpatient psychiatric unit here. Patient apparently did not adhere to her psychotropic medication regimen and was found wandering around knocking on doors. Patient is presently quite disorganized and requires psychiatric admission for safety, observation and stabilization. Admit inpatient. Involuntary status. I have completed first opinion. Consult for second opinion. Request healthcare surrogate and guardian advocate. Given the issues with medication adherence, I will discontinue Seroquel and replace with Risperdal 1 mg twice daily with plans to titrate to effect. If this agent as efficacious my plan will be for long-acting injectable Risperdal Consta or Invega Sustenna in light of nonadherence issues. Resume Depakote. LFTs and platelets okay. Plan to check a level after the appropriate interval. Geodon as needed for severe agitation, Ativan as needed for anxiety, Cogentin as needed for EPS, Benadryl as needed for sleep. Vitals every shift. Counselor to see. Disposition planning. Estimated length of stay: 10-13 days. Discharge Planning Pending psychiatric stabilization Request HC Surrog/Guard Advoc?: Yes Problem Qualifiers (1) Schizophrenia: Qualified Code: F20.0 - Paranoid schizophrenia Abdirahman Henley MD July 19, 2016 09:56
[2016-07-19] MEDS ORDERED: ZIPRASIDONE MESYLATE 20 MG VIAL IM PRN (11:00)
[2016-07-19] MEDS: risperiDONE ODT 1 MG TAB PO SCH ×2 (11:00→21:05)
[2016-07-19 11:21] LABS: HEMOGLOBIN A1a 1.1 %; HEMOGLOBIN A1b 0.6 %; HEMOGLOBIN Ao 54.8 %; HEMOGLOBIN F 0.7 %; HEMOGLOBIN LA1C 1.2 %; HEMOGLOBIN P3 2.2 %
[2016-07-19 17:18] VITALS: BP 108/73; PULSE 75; RESP 18; TEMP 98.6; O2SAT 100
[2016-07-19] MEDS: DIVALPROEX DR 500 MG TABEC PO SCH (21:05)
[2016-07-20 05:41] VITALS: BP 117/74; PULSE 68; RESP 16; TEMP 97.4; O2SAT 96
[2016-07-20] MEDS: NICOTINE 21 MG/24 HR PATCH T-DERMAL SCH (09:00)
[2016-07-20] MEDS ORDERED: REMOVE OLD PATCH T-DERMAL SCH (09:00)
[2016-07-20] MEDS: DIVALPROEX DR 500 MG TABEC PO SCH ×2 (09:03→21:25)
[2016-07-20] MEDS: risperiDONE ODT 1 MG TAB PO SCH ×2 (09:03→21:25)
--- NOTE | 2016-07-20 09:13 | PD.CONS ---
Provisional Diagnosis Admission Date July 18, 2016 at 13:38 [place] I. 1. Schizophrenia, paranoid type, acute exacerbation [place] II. Deferred [place] V. GAF is 30 presently History of Present Illness Service Psychiatry Consult Requested By Primary Care Physician No Primary Care Physician HPI Ms. Riggs is a 41-year-old female with a history of schizophrenia who was sent in transfer from [facility] under a Erickson act. Documentation from outside hospital reviewed. Patient was apparently discovered by EVAC walking down the street knocking on doors. Patient is known to me and was recently discharged from the inpatient psychiatric unit about 5 days ago. Electronic medical record reviewed. Patient seen and examined. Chart reviewed. Case discussed with nursing staff. Nursing staff relates that the medications that the patient was discharged from here with last time were transferred with the patient, and these were unopened. On my examination today, the patient presents with a silly, somewhat giddy affect. She giggles to herself inappropriately. She appears internally stimulated. Thought process disorganized. Speech rambling. She says "I been fasting. I wish I was LMA - Leave Me Alone." Makes other random comments like , "stick, stick, tape, stickin'." Sleep is reportedly poor. Denies any suicidal or homicidal ideation but is unreliable to contract for safety. The remainder of the psychiatric ROS is negative. Past psychiatric history: Patient denies any interval psychiatric admissions or suicide attempts. She has a history of schizophrenia. Family history, chemical dependency history and social history are unchanged from my assessment on 07/05, [id number]. 07/20/16 Above note dictated by Dr. Abdirahman henley reviewed and agreed with. Patient is a 41-year-old Afro-Czech female admitted to Dr. Henley service under the Erickson act. Patient seen by me with nurse Green. Patient continue psychotic with auditory and visual hallucinations and vigilance. Showing very little insight into her disease though acknowledging noncompliance with medication following her discharge on about July 16. She does denies suicidality at this time but does acknowledge being homeless and has significant concerns about that situation also. Dr. Dunlap signed first opinion petition supporting Erickson act. I agree. Patient meets criteria for involuntary psychiatric hospitalization under the Erickson act. Thus I will cosign second opinion petition supporting Erickson act Past Family Social History Coded Allergies: UNOBTAINABLE (Unverified , 06/29/16) Active Scripts Quetiapine 100 Mg [id number] Mg PO BID 15 Days Ref 1 Prov:Abdirahman Henley MD 07/13/[address] 500 Mg [id number] Mg PO BID 15 Days Ref 1 Prov:Abdirahman Henley MD 07/13/16 Current Medications Medications (Trade) Dose Ordered Sig/Sean Route Start Time Stop Time Status Last Admin (Ativan) 1 mg Q6H PRN PO 07/18/16 14:00 (Ativan Inj) 1 mg Q6H PRN IM 07/18/16 14:00 (Benadryl) 50 mg HS PRN PO 07/18/16 21:00 (Tylenol) 650 mg Q4H PRN PO 07/18/16 14:00 (Milk Of Magnesia Liq) 30 ml DAILY PRN PO 07/18/16 14:00 (Mag-Al Plus Susp Liq) 30 ml Q6H PRN PO 07/18/16 14:00 (Habitrol 21 Mg Patch.24 Hr) 1 patch DAILY T-DERMAL 07/19/16 09:00 (Cogentin) 1 mg Q12H PRN PO 07/18/16 14:00 (Cogentin Inj) 1 mg Q12H PRN IM 07/18/16 14:00 Miscellaneous Information 1 DAILY T-DERMAL 07/20/16 09:00 (Depakote Dr) 500 mg BID PO 07/18/16 21:00 07/19/16 21:05 (Pill Splitter) 1 ea UNSCH PRN OTHER 07/18/16 14:00 (risperDAL M-TAB) 1 mg Q12HR PO 07/19/16 11:00 07/19/16 21:05 (Geodon Inj) 20 mg BID PRN IM 07/19/16 11:00 Patient's Strengths (min. 2) In a monitored setting. Verbally fluent. Physical Exam Vital Signs Vital Signs Date Time Temp Pulse Resp B/P Pulse Ox O2 Delivery O2 Flow Rate FiO2 07/20/16 05:41 97.4 68 16 117/74 96 Mental Status Examination Alert somewhat shallow and regular female appears somewhat younger than stated age sitting calmly in her room with nurse Shannan and myself with poor eye contact somewhat guarded and slight delays in her responses Appearance Somewhat disheveled Speech: Hesitant, Slow Orientation: x3 Memory: Unremarkable Thought Process: Organized Thought Content: Paranoid Language Fair Hungarian Fund of Knowledge Fair Hallucination Type: Auditory, Visual Attention and Concentration: Other (fair) Suicidal Ideation: No (deny) Previous Suicide Attempts: No Homicidal Ideation: No Previous Homicide Attempts: No (denies) Insight: Poor Judgment: Poor Affect: Other (decreased range and intensity) Mood: Other (restricted) Motor Activity: Normal gait Assessment & Plan Problem List: (1) Schizophrenia ICD Code: F20.9 Assessment & Plan Estimated LOS: days Request HC Surrog/Guard Advoc?: Yes Problem Qualifiers (1) Schizophrenia: Qualified Code: F20.0 - Paranoid schizophrenia Bakari Woodward MD July 20, 2016 09:13
--- NOTE | 2016-07-20 09:44 | HHI.PYPN ---
Subjective Remarks Patient seen and examined with counselor and nurse. Chart reviewed. Case discussed with nurse, counselor and recreation therapist in treatment team. Per nursing staff, patient is quiet and remains disorganized. Recreation therapist notes that the patient has not yet participated in any groups. Counselor notes the current discharge plan is home with brother once psychiatrically stabilized. On my examination today, the patient is initially somewhat sullen and sarcastic. She rolls her eyes when I asked her to participate in interview. She remains a little internally preoccupied but denies AVH. She denies any suicidal or homicidal ideation. We discussed the reasons for her return to the hospital, and patient speculates, "maybe I was watchin' too much TV." We discuss importance of medication adherence, and she is agreeable to long-acting injectable. Denies side effects from medications. Review of Systems ROS Limitations: Psychotic, Poor Historian Except as stated in HPI: all other systems reviewed are Neg Objective Alert: Yes [place]: Person, Place, Date Mood: Calm Affect: Restricted (mildly dysphoric) Memory Intact: Comment (not formally assessed) Hallucinations: Other (denies AVH but remains a little internally preoccupied) Delusions: Yes Delusion Type: Paranoid (decreasing) Suicidal: Ideation (denies SI) Homicidal: Ideation (denies HI) Insight/Judgment Poor Remarks No motor abnormalities noted. Thought process fairly linear. Grooming and hygiene fair. Labs Labs reviewed. Vitals/IOs Vital Signs Date Time Temp Pulse Resp B/P Pulse Ox O2 Delivery O2 Flow Rate FiO2 07/20/16 05:41 97.4 68 16 117/74 96 Assessment & Plan Problem List: (1) Schizophrenia ICD Code: F20.9 Assessment & Plan Titrate Risperdal to 1.5 mg twice daily. Plan for initiation of long-acting injectable, Risperdal Consta or Invega Sustenna. Continue Depakote as ordered with plans to check a level later this week. Continue to monitor on the inpatient unit. Continue other medications and care as ordered. Justification for Cont. Inpt. Resolving impairments in reality construction. Medication changes and process. High risk for decompensation in a restrictive environment. Discharge Planning Pending psychiatric stabilization. My hope is that we could have the patient adequately stabilized for safe discharge by the end of the week. Request HC Surrog/Guard Advoc?: Yes Problem Qualifiers (1) Schizophrenia: Qualified Code: F20.0 - Paranoid schizophrenia Abdirahman Henley MD July 20, 2016 09:44
[2016-07-20 18:26] VITALS: BP 121/70; PULSE 75; RESP 16; TEMP 97.9; O2SAT 100
[2016-07-21 05:50] VITALS: BP 101/57; PULSE 81; RESP 18; TEMP 97.5; O2SAT 98
[2016-07-21] MEDS: DIVALPROEX DR 500 MG TABEC PO SCH ×2 (08:22→20:17)
[2016-07-21] MEDS: risperiDONE ODT 1 MG TAB PO SCH (08:22)
--- NOTE | 2016-07-21 13:48 | HHI.PYPN ---
Subjective Remarks Patient seen and examined. Chart reviewed. Case discussed with nursing staff who reports patient has been calm and in good behavioral control. On my examination today, the patient is sitting in the day area. She is reading the paper. She denies any AVH. No SI or HI. Affect remains a little flat. Denies side effects from medications. Remains agreeable to long-acting injectable, and we discussed her options in this regard. We settle on Invega Sustenna. Review of Systems Except as stated in HPI: all other systems reviewed are Neg Objective Alert: Yes [place]: Person, Place, Date, Situation Mood: Calm Affect: Blunted Memory Intact: Comment (not assessed) Hallucinations: Other (Denies AVH) Delusions: No Delusion Type: Other (No delusional material today.) Suicidal: Ideation (denies SI) Homicidal: Ideation (denies HI) Insight/Judgment Poor Remarks No motor abnormalities noted. No hand tremor, no cogwheeling, no hypomimia, no dystonia, no dyskinesia. Thought process fairly linear. Speech within normal limits for rate, tone and volume. Grooming and hygiene fair. Labs Labs reviewed. No new labs. Vitals/IOs Vital Signs Date Time Temp Pulse Resp B/P Pulse Ox O2 Delivery O2 Flow Rate FiO2 07/21/16 05:50 97.5 81 18 101/57 98 Assessment & Plan Problem List: (1) Schizophrenia ICD Code: F20.9 Assessment & Plan Patient is tolerating oral Risperdal well without side effects and seems to be having a good response in conjunction with Depakote. Invega Sustenna 234 mg IM today. UR has checked and this agent is well-covered by her insurer. This agent does not require oral supplementation and so will discontinue the oral Risperdal. Plan for booster dose of Invega Sustenna over the weekend. Continue Depakote as ordered. Check a Depakote level over the weekend. Continue to monitor on the inpatient unit. Continue other medications include care as ordered. Justification for Cont. Inpt. Medication changes in process. Patient remains at high risk for decompensation and rehospitalization until she can be provided with the booster dose of Invega Sustenna. Discharge Planning Pending outcome a [place] [facility]. If the patient is retained, I plan to hold the patient over the weekend in order to administer booster dose of Invega Sustenna. Request HC Surrog/Guard Advoc?: Yes Problem Qualifiers (1) Schizophrenia: Qualified Code: F20.0 - Paranoid schizophrenia Abdirahman Henley MD July 21, 2016 13:48
[2016-07-21] MEDS ORDERED: PALIPERIDONE PALMITATE 234 MG/1.5 ML SYRINGE IM ONE (16:00)
[2016-07-21 17:12] VITALS: BP 101/56; PULSE 81; RESP 18; TEMP 95.6; O2SAT 95
[2016-07-21] MEDS: diphenhydrAMINE HCL 50 MG CAP PO PRN (20:17)
[2016-07-22 06:00] VITALS: BP 100/57; PULSE 75; RESP 18; TEMP 97.3; O2SAT 95
[2016-07-22] MEDS: DIVALPROEX DR 500 MG TABEC PO SCH ×2 (09:10→20:29)
--- NOTE | 2016-07-22 10:15 | HHI.PYPN ---
Subjective Remarks Patient seen and case discussed with nursing staff. Per nursing staff, patient has been no behavioral problem. For me today, the patient complains of somewhat poor sleep but otherwise has no complaints. No reported hallucinations. Thought process fairly linear. No SI or HI. No reported side effects from medications. Review of Systems Other No somatic complaints today Objective Alert: Yes [place]: Person, Place, Date, Situation Mood: Calm Affect: Blunted (remains somewhat blunted) Memory Intact: Comment (not assessed) Hallucinations: Other (none) Delusions: No Delusion Type: Other (no delusional material elicited) Suicidal: Ideation (none) Homicidal: Ideation (none) Insight/Judgment Poor Remarks No motor abnormalities noted Labs Labs reviewed. No new labs. Vitals/IOs Vital Signs Date Time Temp Pulse Resp B/P Pulse Ox O2 Delivery O2 Flow Rate FiO2 07/22/16 06:00 97.3 75 18 100/57 95 Assessment & Plan Problem List: (1) Schizophrenia ICD Code: F20.9 Assessment & Plan Patient appears to be tolerating Invega Sustenna well without side effects. Plan for booster dose of Invega Sustenna over the weekend. Continue Depakote as ordered. Depakote level ordered for over the weekend. Continue to monitor on the inpatient unit. Continue other medications and care as ordered. Patient 's case was presented to the [place] act court and the case was placed in continuance for 2 weeks. Justification for Cont. Inpt. Resolving impairments in reality construction. Medication changes in process. High risk for decompensation until medication changes are completed. Discharge Planning Anticipate discharge after the weekend barring some clinical deterioration. Request HC Surrog/Guard Advoc?: Yes Problem Qualifiers (1) Schizophrenia: Qualified Code: F20.0 - Paranoid schizophrenia Abdirahman Henley MD July 22, 2016 10:15
[2016-07-22] MEDS: BENZTROPINE MESYLATE 1 MG TAB PO PRN (12:42)
[2016-07-22] MEDS: ACETAMINOPHEN 325 MG TAB PO PRN (12:42)
[2016-07-22 16:45] VITALS: BP 100/58; PULSE 84; RESP 18; TEMP 98.4; O2SAT 94
[2016-07-22] MEDS: diphenhydrAMINE HCL 50 MG CAP PO PRN (20:31)
[2016-07-23 05:28] VITALS: BP 99/53; PULSE 84; RESP 18; TEMP 97.4; O2SAT 96
--- NOTE | 2016-07-23 09:17 | HHI.PYPN ---
Subjective Remarks Patient seen and examined. Chart reviewed. Case discussed with RN who reports that the patient received Cogentin yesterday afternoon for management of EPS. On my examination today, patient is calm but flat and hypoverbal. She says that she is just watching TV. Denies any AVH but there is perhaps some resolving internal preoccupation. Continues to complain of some subjective stiffness but no other side effects from medications. Review of Systems ROS Limitations: Poor Historian Except as stated in HPI: all other systems reviewed are Neg Objective Alert: Yes [place]: Person, Place, Date, Situation Mood: Calm Affect: Flat Memory Intact: Comment (Not formally assessed) Hallucinations: Other (Mildly internally preoccupied) Delusions: No Delusion Type: Other (No delusions) Suicidal: Ideation (No SI) Homicidal: Ideation (No HI) Insight/Judgment Poor Remarks Mild cog-wheeling and perhaps some subtle hypomimia on exam. No other motor abnormalities noted. Grooming and hygiene fair. TP linear. Speech somewhat hypoverbal. Labs Labs reviewed. No new labs. 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 Plan remains for Invega Sustenna booster injection Tuesday. Continue Depakote as ordered; check a Depakote level over the weekend. Continue to monitor on the inpatient unit. Continue other medications and care as ordered. Justification for Cont. Inpt. Complicating condition (EPS). Resolving impairment in reality construction. Med changes in process. High risk for decompensation until booster dose of Sustenna can be administered, and the earliest this can safely be done is over the weekend. Discharge Planning Anticipate discharge with sibling after the weekend with outpatient follow up barring some clinical worsening. Request HC Surrog/Guard Advoc?: Yes Problem Qualifiers (1) Schizophrenia: Qualified Code: F20.0 - Paranoid schizophrenia Abdirahman Henley MD July 23, 2016 09:17
[2016-07-23] MEDS: ACETAMINOPHEN 325 MG TAB PO PRN ×2 (09:32→19:32)
[2016-07-23] MEDS: DIVALPROEX DR 500 MG TABEC PO SCH ×2 (09:32→20:21)
[2016-07-23] MEDS: BENZTROPINE MESYLATE 1 MG TAB PO PRN (09:32)
[2016-07-23 15:45] VITALS: BP 106/56; PULSE 86; RESP 18; TEMP 97.5; O2SAT 96
[2016-07-23] MEDS: BENZTROPINE MESYLATE 1 MG TAB PO SCH (20:21)
[2016-07-24 06:19] VITALS: BP 95/54; PULSE 85; RESP 15; TEMP 98.4; O2SAT 98
[2016-07-24] MEDS: DIVALPROEX DR 500 MG TABEC PO SCH ×2 (09:29→20:33)
[2016-07-24] MEDS: BENZTROPINE MESYLATE 1 MG TAB PO SCH ×2 (09:29→20:33)
--- NOTE | 2016-07-24 13:44 | HHI.PYPN ---
Subjective Remarks Patient seen and examined with RN. Chart reviewed. Case discussed with RN who reports that the patient has been doing well on the unit with no complaints of AVH. On my exam today, patient is enjoying coffee hour in the rec room. She remains a little blunted and hypoverbal but does seem more interactive with increased affective range, even smiles at intervals. No AVH. No SI/HI. Remains agreeable to booster dose of Invega Sustenna tomorrow. Denies side effects from meds. No physical complaints. Review of Systems ROS Limitations: Poor Historian Except as stated in HPI: all other systems reviewed are Neg Objective Alert: Yes [place]: Person, Place, Date, Situation Mood: Calm Affect: Blunted Memory Intact: Comment (Not formally assessed) Hallucinations: Other (No AVH) Delusions: No Delusion Type: Other (No delusional material) Suicidal: Ideation (No SI) Homicidal: Ideation (No HI) Insight/Judgment Poor Remarks No abnormal motor movements noted. No hand tremor or hypomimia. TP linear. Labs Test 07/24/16 09:25 Valproic Acid (Depakene) Level 64 MCG/ML Labs reviewed. Depakote level within the therapeutic range. Vitals/IOs Vital Signs Date Time Temp Pulse Resp B/P Pulse Ox O2 Delivery O2 Flow Rate FiO2 07/24/16 06:19 98.4 85 15 95/54 98 Assessment & Plan Problem List: (1) Schizophrenia ICD Code: F20.9 (2) Extrapyramidal movements present Assessment & Plan: Resolved with Cogentin ICD Code: G25.9 Assessment & Plan Invega Sustenna 156mg IM tomorrow. Continue Depakote as ordered; Depakote level is therapeutic. Continue to monitor on inpatient unit. Continue other medications and care as ordered. Justification for Cont. Inpt. Risk for decompensation pending completion of medication changes, i.e. administration of booster dose of Sustenna. Discharge Planning Anticipate discharge Tuesday barring some clinical deterioration. Request HC Surrog/Guard Advoc?: Yes Problem Qualifiers (1) Schizophrenia: Qualified Code: F20.0 - Paranoid schizophrenia Abdirahman Henley MD July 24, 2016 13:44
[2016-07-24 16:37] VITALS: BP 110/57; PULSE 74; RESP 18; TEMP 97.3; O2SAT 97
[2016-07-25 06:00] VITALS: BP 96/51; PULSE 68; RESP 17; TEMP 98.1
[2016-07-25] MEDS ORDERED: PALIPERIDONE PALMITATE 156 MG/ML SYRINGE IM ONE (09:00)
--- NOTE | 2016-07-25 10:05 | HHI.PYPN ---
Subjective Remarks Patient seen today covering for Dr. Amador who is ill, patient calm cooperative with me compliant medications, denies suicidality homicidality voices or visions. For now continue treatment no change Review of Systems Except as stated in HPI: all other systems reviewed are Neg Objective Alert: Yes [place]: Person, Place, Date, Situation Mood: Calm Affect: Blunted Memory Intact: Comment (Not formally assessed) Hallucinations: Other (No AVH) Delusions: No Delusion Type: Other (No delusional material) Suicidal: Ideation (No SI) Homicidal: Ideation (No HI) Insight/Judgment Poor Vitals/IOs Vital Signs Date Time Temp Pulse Resp B/P Pulse Ox O2 Delivery O2 Flow Rate FiO2 07/25/16 06:00 98.1 68 17 96/51 07/24/16 16:37 97 Assessment & Plan Problem List: (1) Schizophrenia ICD Code: F20.9 (2) 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 Inpt. At this time patient decompensate if placed in a lower level of care Discharge Planning To be determined Request HC Surrog/Guard Advoc?: Yes Problem Qualifiers (1) Schizophrenia: Qualified Code: F20.0 - Paranoid schizophrenia Bakari Woodward MD July 25, 2016 10:05
[2016-07-25] MEDS: BENZTROPINE MESYLATE 1 MG TAB PO SCH ×2 (10:27→21:00)
[2016-07-25] MEDS: DIVALPROEX DR 500 MG TABEC PO SCH ×2 (10:27→21:44)
[2016-07-25 18:20] VITALS: BP 96/64; PULSE 94; RESP 16; TEMP 98.2; O2SAT 98
[2016-07-26 06:11] VITALS: BP 98/54; PULSE 79; RESP 16; TEMP 97.9; O2SAT 95
[2016-07-26] MEDS: BENZTROPINE MESYLATE 1 MG TAB PO SCH (09:35)
[2016-07-26] MEDS: DIVALPROEX DR 500 MG TABEC PO SCH (09:36)
[2016-07-26] MEDS ORDERED: DIVA500T PO (11:00)
[2016-07-26] MEDS ORDERED: BENZ1TAB PO (11:00)
[2016-07-26] MEDS ORDERED: PALI156P IM (11:00)
--- NOTE | 2016-07-26 11:07 | HHI.DS ---
Psychiatry Discharge Summary Inpatient Psychiatric care?: Yes Advance Directive: No Reason Not Provided: DOES NOT HAVE Mental Health AdvanceDirective: No Health Care Proxy: No Admission Admission Date July 18, 2016 at 13:38 Admission Diagnosis: (1) Schizophrenia ICD Code: F20.9 Brief History Ms. Riggs is a 41-year-old female with a history of schizophrenia who was sent in transfer from [facility] under a [facility] act. Documentation from outside hospital reviewed. Patient was apparently discovered by [facility] walking down the street knocking on doors. Patient is known to me and was recently discharged from the inpatient psychiatric unit about 5 days ago. Electronic medical record reviewed. Patient seen and examined. Chart reviewed. Case discussed with nursing staff. Nursing staff relates that the medications that the patient was discharged from here with last time were transferred with the patient, and these were unopened. On my examination today, the patient presents with a silly, somewhat giddy affect. She giggles to herself inappropriately. She appears internally stimulated. Thought process disorganized. Speech rambling. She says "I been fasting. I wish I was LMA - Leave Me Alone." Makes other random comments like , "stick, stick, tape, stickin'." Sleep is reportedly poor. Denies any suicidal or homicidal ideation but is unreliable to contract for safety. The remainder of the psychiatric ROS is negative. Past psychiatric history: Patient denies any interval psychiatric admissions or suicide attempts. She has a history of schizophrenia. Family history, chemical dependency history and social history are unchanged from my assessment on 07/05, [id number]. 07/20/16 Above note dictated by Dr. Abdirahman henley reviewed and agreed with. Patient is a 41-year-old Afro-[place] female admitted to Dr. Henley service under the Erickson act. Patient seen by me with nurse Green. Patient continue psychotic with auditory and visual hallucinations and vigilance. Showing very little insight into her disease though acknowledging noncompliance with medication following her discharge on about July 16. She does denies suicidality at this time but does acknowledge being homeless and has significant concerns about that situation also. Dr. Dunlap signed first opinion petition supporting Eric[place]on act. I agree. Patient meets criteria for involuntary psychiatric hospitalization under the Erickson act. Thus I will cosign second opinion petition supporting [place]on act Tobacco Use In Past 30 Days: Refused To Answer Alcohol Use: Never Hospital Course Patient's hospital course was uneventful, she has been compliant with medications from the of admission. She also was cooperative with the injections of the invega sustaiina. She denies suicidality homicidality voices or visions at this time. States is willing to follow-up with medication and injections with through [facility] outpatient medication and injection services. Patient will be given 1 month supply of medications and discharged to herself Results Blood Pressure 98 / 54 Vital Signs Date Time Temp Pulse Resp B/P Pulse Ox O2 Delivery O2 Flow Rate FiO2 07/26/16 06:11 97.9 79 16 98/54 95 Laboratory Results Test 07/24/16 09:25 Valproic Acid (Depakene) Level 64 MCG/ML (50-100) Summary of Procedures None none Pending results at discharge: No Medications # of Antipsychotic meds at D/C: 1 Approp Antipsych med options 1 - Minimum of three failed multiple trials of monotherapy. 2 - Documented plan to taper to monotherapy due to previous use of multiple meds OR cross-taper in progress at D/C. 3 - Documentation of augmentation of Clozapine. 4 - Justification other than those listed in allowable values 1-3, document here : Discharge Discharge Date: July 26, 2016 Discharge Diagnosis: (1) Schizophrenia Diagnosis: Principal ICD Code: F20.9 Mental Status Exam at Disch Alert oriented female calm cooperative. She is normoactive. Mood is euthymic affect shows good range intensity. Speech rate and rhythm are within normal limits though no formal thought disorders. No auditory or visual hallucinations no delusions noted. Insight and judgment is poor to fair cognition grossly intact Pt Condition on Discharge: Stable Discharge Disposition: Discharge Home Discharge Instructions Diet Instructions: As Tolerated, No Restrictions Activities you can perform: Regular-No Restrictions Scheduled Appointment: [facility] (for both mental health services and injection services) Appointment Date: July 29, 2016 Appointment Time: 7:30 am Discharge Time > 30 minutes Discharge/Advance Care Plan Health Problems: (1) Schizophrenia (2) Extrapyramidal movements present Goals to promote your health * To prevent worsening of your condition and complications * To maintain your health at the optimal level Directions to meet your goals Take your medications as prescribed Follow your dietary instruction Follow activity as directed Keep your appointments as scheduled Take your immunizations and boosters as scheduled If your symptoms worsen call your PCP, if no PCP go to Urgent Care Center or Emergency Room For 04/10 questions related to your inpatient stay or results of tests pending at discharge, please contact Dr. Bakari Woodward at Smoking is Dangerous to Your Health. Avoid second hand smoking Problem Qualifiers (1) Schizophrenia: Qualified Code: F20.0 - Paranoid schizophrenia Bakari Woodward MD July 26, 2016 11:07
== END 2016-07-26 13:00 | disposition home or self-care (01) | DRG 885 ==
LOC: H270 13:38
PROVIDERS: ADMIT Psychiatry & Neurology Psychiatry; ATTEND Psychiatry & Neurology Psychiatry
DX: F20.0 Paranoid schizophrenia (principal); Z91.14 Patient's other noncompliance with medication regimen; F41.9 Anxiety disorder, unspecified; Z59.0 Homelessness
CPT/HCPCS: 80053; 80061; 80164; 83036; 85025; J2426; Q0163

== ENCOUNTER 2016-10-21 16:50 | Emergency (ER) | payer OTHER ==
[~2016-10-21] VITALS: Ht 152.4 cm; Wt 65.0 kg
[~2016-10-21 16:50] MED LIST changes: +BENZ1TAB PO; +PALI156P IM
[2016-10-21 16:58] VITALS: BP 120/75; PULSE 112; RESP 16; TEMP 98.6; O2SAT 97
== END 2016-10-21 17:50 | disposition left against medical advice (07) ==
LOC: NED 17:45
DX: N93.9 Abnormal uterine and vaginal bleeding, unspecified (principal); R19.7 Diarrhea, unspecified; Z53.21 Procedure and treatment not carried out due to patient leaving prior to being seen by health care provider
CPT/HCPCS: 99281

== ENCOUNTER 2016-11-29 11:01 | Inpatient (IN) | payer OTHER, MEDICARE ==
[~2016-11-29] VITALS: Ht 157.5 cm; Wt 49.9 kg
[2016-11-29 11:07] VITALS: BP 126/91; PULSE 84; RESP 16; TEMP 98.1; O2SAT 97
--- NOTE | 2016-11-29 11:11 | PD ---
HPI . Patient here requesting to be ciara acted Chief Complaint: Psychiatric Symptoms Time Seen by Provider: 11:11 Travel History International Travel<30 days: No Contact w/Intl Traveler<30days: No Traveled to known affect area: No History of Present Illness HPI 41-year-old female with history of schizophrenia here requesting to be ciara acted. Patient tells me that she has a lot of things going on in her life involving an cherrie alert, adoptive father, biological father, and other family stressors. She tells me she thinks someone is trying to kill her. She tells me that she feel suicidal or homicidal and she would like to be ciara acted for these reasons. She says she is having to stay with a lot of different people and she doesn't want to stay with them. She does not have a definitive plan of harming herself. She was brought in by [facility]. She has no complaints of chest pain, nausea, vomiting, abdominal pain, shortness of breath, back pain or other symptoms. PFSH Past Medical History ?: Unknown Social History Tobacco Use: Yes Substance Use: No Allergies-Medications (Allergen,Severity, Reaction): Coded Allergies: No Known Allergies (Unverified , 11/29/16) Reported Meds & Prescriptions Reported Meds & Active Scripts Active Review of Systems General / Constitutional: No: Fever Eyes: No: Visual changes HENT: No: Headaches Cardiovascular: No: Chest Pain or Discomfort Respiratory: No: Shortness of Breath Gastrointestinal: No: Abdominal Pain Genitourinary: No: Dysuria Musculoskeletal: No: Pain Skin: No Rash Neurologic: No: Weakness Psychiatric: Positive: Suicidal Ideations, Homicidal Ideation, No: Depression Endocrine: No: Polydipsia Hematologic/Lymphatic: No: Easy Bruising Physical Exam Narrative GENERAL: AAO x 3, no acute distress, disheveled appearance SKIN: Warm and dry. No visible rashes or bruising. HEAD: Normocephalic and atraumatic. EYES: No scleral icterus. No injection or drainage. PERRLA ENT: No nasal drainage noted. Mucous membranes pink. Airway patent. NECK: Supple, trachea midline. No JVD. CARDIOVASCULAR: Regular rate and rhythm without murmurs, gallops, or rubs. RESPIRATORY: Breath sounds equal bilaterally. No accessory muscle use. No rhonchi or rales. GASTROINTESTINAL: Abdomen soft, non-tender, nondistended. EXTREMITIES: No cyanosis or edema. BACK: Nontender without obvious deformity. No CVA tenderness. NEURO: CN II-12 intact PSYCH: AAO x 3,paranoid Data Data Last Documented VS Vital Signs Date Time Temp Pulse Resp B/P (MAP) Pulse Ox O2 Delivery O2 Flow Rate FiO2 11/29/16 11:07 98.1 84 16 126/91 (103) 97 Orders Orders Complete Blood Count With Diff (11/29/16 11:12) Comprehensive Metabolic Panel (11/29/16 11:12) Ed Urine Pregnancytest Poc (11/29/16 11:12) Psych Screen (11/29/16 11:12) Drug Screen, Random Urine (11/29/16 11:12) Alcohol (Ethanol) (11/29/16 11:12) Potassium Chloride (Kcl) (11/29/16 12:15) Labs Laboratory Tests Test 11/29/16 11:00 11/29/16 11:20 Urine Opiates Screen NEG Urine Barbiturates Screen NEG Urine Amphetamines Screen NEG Urine Benzodiazepines Screen NEG Urine Cocaine Screen NEG Urine Cannabinoids Screen NEG White Blood Count 8.5 TH/MM3 Red Blood Count 4.51 MIL/MM3 Hemoglobin 13.3 GM/DL Hematocrit 39.9 % Mean Corpuscular Volume 88.5 FL Mean Corpuscular Hemoglobin 29.4 PG Mean Corpuscular Hemoglobin Concent 33.2 % Red Cell Distribution Width 15.7 % Platelet Count 256 TH/MM3 Mean Platelet Volume 9.0 FL Neutrophils (%) (Auto) 64.9 % Lymphocytes (%) (Auto) 25.0 % Monocytes (%) (Auto) 8.5 % Eosinophils (%) (Auto) 1.0 % Basophils (%) (Auto) 0.6 % Neutrophils # (Auto) 5.5 TH/MM3 Lymphocytes # (Auto) 2.1 TH/MM3 Monocytes # (Auto) 0.7 TH/MM3 Eosinophils # (Auto) 0.1 TH/MM3 Basophils # (Auto) 0.1 TH/MM3 CBC Comment DIFF FINAL Differential Comment Blood Urea Nitrogen 4 MG/DL Creatinine 0.80 MG/DL Random Glucose 99 MG/DL Total Protein 7.5 GM/DL Albumin 3.7 GM/DL Calcium Level 9.2 MG/DL Alkaline Phosphatase 86 U/L Aspartate Amino Transf (AST/SGOT) 11 U/L Alanine Aminotransferase (ALT/SGPT) 14 U/L Total Bilirubin 0.8 MG/DL Sodium Level 140 MEQ/L Potassium Level 3.2 MEQ/L Chloride Level 107 MEQ/L Carbon Dioxide Level 26.3 MEQ/L Anion Gap 7 MEQ/L Estimat Glomerular Filtration Rate 95 ML/MIN Ethyl Alcohol Level LESS THAN 3 MG/DL MDM Medical Decision Making Medical Screen Exam Complete: Yes Emergency Medical Condition: Yes Medical Record Reviewed: Yes Differential Diagnosis schizophrenia, suicidal ideation, homicidal ideation, Narrative Course 41 yr old female here requesting to be urbina acted. She has history of schizophrenia. Labs, UA and psych screen have been ordered. I do believe patient poses a threat to herself of others. She has stated that she doesn't want to stay with the people she is currently living with and I think this may be part of her motivation for requesting a urbina act. 1229: patient comfortably resting in bed. Potassium borderline low and I have provided replacement. She is medically cleared for psych screen. Diagnosis Primary Impression: Suicidal ideation Additional Impression: Schizophrenia Qualified Codes: F20.9 - Schizophrenia, unspecified Scripts No Active Prescriptions or Reported Meds Condition: Stable Stacey Iyer Nov 29, 2016 11:11
[2016-11-29 11:37] LABS: AUTOMATED NEUTROPHIL # 5.5 TH/MM3 (1.8-7.7); BASOPHIL # 0.1 TH/MM3 (0-0.2); BASOPHIL % 0.6 % (0.0-2.0); EOSINOPHIL # 0.1 TH/MM3 (0-0.4); HEMATOCRIT 39.9 % (35.0-46.0); HEMO FLAGS DIFF FINAL; LYMPHOCYTE # 2.1 TH/MM3 (1.0-4.8); MEAN CELL VOLUME 88.5 FL (80.0-100.0); MEAN CORPUSCULAR HEMOGLOBIN 29.4 PG (27.0-34.0); MEAN CORPUSCULAR HGB CONC 33.2 % (32.0-36.0); MONO % 8.5 % (0.0-8.0); NEUT % 64.9 % (16.0-70.0); PLATELET COUNT 256 TH/MM3 (150-450); RED BLOOD COUNT 4.51 MIL/MM3 (4.00-5.30); RED CELL DISTRIBUTION WIDTH 15.7 % (11.6-17.2); WHITE BLOOD COUNT 8.5 TH/MM3 (4.0-11.0)
[2016-11-29 11:56] LABS: ANION GAP 7 MEQ/L (5-15); AST (GOT) 11 U/L (15-37); BICARBONATE 26.3 MEQ/L (21.0-32.0); BLOOD UREA NITROGEN 4 MG/DL (7-18); CHLORIDE 107 MEQ/L (98-107); GLOMERULAR FILTRATION RATE 95 ML/MIN (>89); POTASSIUM 3.2 MEQ/L (3.5-5.1); SODIUM (NA) 140 MEQ/L (136-145)
[2016-11-29 11:57] LABS: ALT (GPT) 14 U/L (10-53)
[2016-11-29 11:58] LABS: ALCOHOL LESS THAN 3 MG/DL (0-5)
[2016-11-29 11:59] LABS: ALKALINE PHOSPHATASE 86 U/L (45-117); TOTAL BILIRUBIN ADULT 0.8 MG/DL (0.2-1.0)
[2016-11-29] MEDS ORDERED: POTASSIUM CHLORIDE 20 MEQ CONTROLLED RELEASE TAB PO ONE (12:15)
[2016-11-29 12:30] VITALS: BP 125/88; PULSE 81; RESP 15; O2SAT 97
[2016-11-29 18:30] VITALS: BP 124/68; PULSE 86; RESP 18; TEMP 97.9; O2SAT 98
[2016-11-29 22:12] VITALS: BP 123/56; PULSE 93; RESP 18; TEMP 97.7; O2SAT 95
[2016-11-30] MEDS ORDERED: LORazepam 2 MG/ML VIAL IM ONE
[2016-11-30] MEDS ORDERED: HALOPERIDOL LACTATE 5 MG/ML AMP IM ONE
[2016-11-30 02:00] VITALS: BP 103/77; PULSE 90; RESP 18; TEMP 98.7; O2SAT 98
[2016-11-30 06:21] VITALS: BP 128/77; PULSE 78; RESP 16
[2016-11-30] MEDS ORDERED: ACETAMINOPHEN 325 MG TAB PO PRN (12:00)
[2016-11-30] MEDS ORDERED: LORazepam 1 MG TAB PO PRN (12:00)
[2016-11-30] MEDS ORDERED: LORazepam 2 MG/ML VIAL IM PRN ×2 (12:00)
[2016-11-30] MEDS ORDERED: LORazepam 0.5 MG TAB PO PRN (12:00)
[2016-11-30] MEDS ORDERED: ALUMINUM/MAGNESIUM/SIMETH 30 ML CUP PO PRN (12:00)
[2016-11-30] MEDS ORDERED: MAGNESIUM HYDROXIDE SUSP 30 ML CUP PO PRN (12:00)
[2016-11-30 12:05] VITALS: BP 122/68; PULSE 79; RESP 18
[2016-11-30 15:12] VITALS: BP 104/73; PULSE 90; TEMP 98; O2SAT 95
--- NOTE | 2016-11-30 17:07 | PD.CONS ---
[facility] By Dr. Easton. Reason for Consult Medical management. Primary Care Physician No Primary Care Physician Diagnoses: History of Present Illness This is a 41-year-old female with past medical history of ADHD and schizophrenia who presented with a Erickson act. [facility] consulted for medical management. Patient stated she has ADHD. Otherwise she denies any other past medical history. All other review symptoms reviewed and negative. Past Family Social History Allergies: Coded Allergies: No Known Allergies (Unverified , 11/29/16) Past Medical History ADHD Schizophrenia Past Surgical History Knee and ankle surgery Reported Medications Patient not a home medication. Active Ordered Medications Current Medications Potassium Chloride (KCl) 20 meq ONCE ONCE PO Last administered on 11/29/16 12 :48; Start 11/29/16 at 12:15; Stop 11/29/16 at 12:16; Status DC Haloperidol Lactate (Haldol Inj) 5 mg ONCE ONCE IM Last administered on 00:00; Start 11/30/16 at 00:00; Stop 11/30/16 at 00:01; Status DC Lorazepam (Ativan Inj) 2 mg ONCE ONCE IM Last administered on 11/30/16 00:00 ; Start 11/30/16 at 00:00; Stop 11/30/16 at 00:01; Status DC Lorazepam (Ativan) 1 mg Q6H PRN PO MODERATE TO SEVERE ANXIETY; Start 11/30/16 at 12:00 Lorazepam (Ativan Inj) 1 mg Q6H PRN IM MODERATE TO SEVERE ANXIETY; Start at 12:00 Lorazepam (Ativan) 0.5 mg Q12H PRN PO MODERATE TO SEVERE ANXIETY; Start at 12:00; Stop 11/30/16 at 12:08; Status DC Lorazepam (Ativan Inj) 0.5 mg Q12H PRN IM MODERATE TO SEVERE ANXIETY; Start at 12:00; Stop 11/30/16 at 12:08; Status DC Acetaminophen (Tylenol) 650 mg Q4H PRN PO Pain 1-5 or Temp >101F; Start at 12:00 Magnesium Hydroxide (Milk Of Magnesia Liq) 30 ml DAILY PRN PO CONSTIPATION; Start 11/30/16 at 12:00 Al Hydrox/Mg Hydrox/Simethicone (Mag-Al Plus Susp Liq) 30 ml Q6H PRN PO DYSPEPSIA; Start 11/30/16 at 12:00 Nicotine (Habitrol 21 Mg Patch.24 Hr) 1 patch DAILY T-DERMAL ; Start 12/01/16 at 09:00 Miscellaneous Information 1 DAILY T-DERMAL ; Start 12/01/16 at 09:00 Family History Patient is adopted. She did not know her family history. Social History Patient smokes tobacco but would not quantify. She stated "not that much." Denies any alcohol illicit drug use. Physical Exam Vital Signs Vital Signs Date Time Temp Pulse Resp B/P (MAP) Pulse Ox O2 Delivery O2 Flow Rate FiO2 11/30/16 15:12 98.0 90 104/73 (83) 95 11/30/16 12:05 79 18 122/68 (86) 11/30/16 06:21 78 16 128/77 (94) 11/30/16 02:00 98.7 90 18 103/77 (86) 98 Room Air 11/29/16 22:12 97.7 93 18 123/56 (78) 95 Room Air 11/29/16 18:30 97.9 86 18 124/68 (86) 98 Room Air Physical Exam GENERAL: This is a well-nourished, well-developed patient, in no apparent distress. NEURO: Moving all extremities grossly. Patient would not allow me to examine her. She stated that she has a primary care physician and does not want me to examine her. Psychiatric tach at the bedside with me during the interview and examination. Result Diagram: 11/29/16 1120 11/29/16 1120 Assessment and Plan Assessment and Plan 41-year-old female with history of schizophrenia ADHD [facility] a consult for medical management Schizophrenia/Erickson act -Treatment per inpatient psychiatrist. Hypokalemia -Asymptomatic. Will give a dose potassium. Discussed Condition With Patient does not have any past medical conditions except for a psychiatric history. Labs reviewed. This patient is medically stable will sign off. Reconsult when necessary. Jo Ann Mckeon MD Nov 30, 2016 17:07
[2016-11-30] MEDS ORDERED: POTASSIUM CHLORIDE 20 MEQ CONTROLLED RELEASE TAB PO ONE (17:15)
[2016-12-01] MEDS: NICOTINE 21 MG/24 HR PATCH T-DERMAL SCH (08:24)
[2016-12-01] MEDS: REMOVE OLD PATCH T-DERMAL SCH (09:00)
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
[2016-12-01 10:03] LABS: BICARBONATE 29.5 MEQ/L (21.0-32.0); BLOOD UREA NITROGEN 8 MG/DL (7-18); GLOMERULAR FILTRATION RATE 97 ML/MIN (>89)
[2016-12-01 10:34] LABS: ANION GAP 5 MEQ/L (5-15); CHLORIDE 107 MEQ/L (98-107); LDL CHOLESTEROL 71 MG/DL (0-99); POTASSIUM 4.1 MEQ/L (3.5-5.1); SODIUM (NA) 141 MEQ/L (136-145)
[2016-12-01] MEDS ORDERED: PALIPERIDONE PALMITATE 234 MG/1.5 ML SYRINGE IM ONE (11:15)
[2016-12-01] MEDS ORDERED: PILL SPLITTER OTHER PRN (13:45)
[2016-12-01 16:45] LABS: HEMOGLOBIN A1a 1.2 %; HEMOGLOBIN A1b 0.6 %; HEMOGLOBIN Ao 54.8 %; HEMOGLOBIN F 0.8 %; HEMOGLOBIN LA1C 1.4 %; HEMOGLOBIN P3 2.2 %
[2016-12-01 18:54] VITALS: BP 94/60; PULSE 75; RESP 16; TEMP 97.7; O2SAT 98
[2016-12-01] MEDS: BENZTROPINE MESYLATE 1 MG TAB PO SCH (20:37)
[2016-12-01] MEDS: DIVALPROEX DR 500 MG TABEC PO SCH (20:37)
[2016-12-01] MEDS: risperiDONE ODT 1 MG TAB PO SCH (20:37)
[2016-12-02 05:43] VITALS: BP 80/47; PULSE 79; RESP 16; TEMP 98.1; O2SAT 98
[2016-12-02] MEDS: DIVALPROEX DR 500 MG TABEC PO SCH ×2 (08:12→21:07)
[2016-12-02] MEDS: risperiDONE ODT 1 MG TAB PO SCH (08:12)
[2016-12-02] MEDS: BENZTROPINE MESYLATE 1 MG TAB PO SCH ×2 (08:13→21:07)
[2016-12-02] MEDS: NICOTINE 21 MG/24 HR PATCH T-DERMAL SCH (08:14)
[2016-12-02] MEDS: REMOVE OLD PATCH T-DERMAL SCH (08:14)
--- NOTE | 2016-12-02 10:06 | HHI.PYPN ---
Subjective Remarks Patient seen and examined with counselor and nurse. Chart reviewed. Case discussed with nursing staff reports the patient is somewhat seclusive to room and demanding. On my examination today, the patient does report that she slept well overnight. She remains little bit irritable and paranoid. Continues to be vague regarding details of her case and says that "it's private." Denies AVH. Denies side effects from medications. No physical complaints. Review of Systems ROS Limitations: Psychotic, Poor Historian Except as stated in HPI: all other systems reviewed are Neg Objective Alert: Yes [place]: Person, Place, Date Mood: Other (dysphoric) Affect: Restricted Memory Intact: Comment (fair on clinical exam) Hallucinations: Other (denies AVH) Delusions: Yes Delusion Type: Paranoid Suicidal: Ideation (none) Homicidal: Ideation (none) Insight/Judgment Poor Remarks No hand tremor, no cogwheeling, no dystonias, no dyskinesias. Thought process linear. Grooming and hygiene fair. Labs Labs reviewed. Vitals/IOs Vital Signs Date Time Temp Pulse Resp B/P (MAP) Pulse Ox O2 Delivery O2 Flow Rate FiO2 12/02/16 05:43 98.1 79 16 80/47 (58) 98 11/30/16 02:00 Room Air Blood pressure noted. Patient denies any chest pain, shortness of breath or other symptoms of symptomatic hypotension. Assessment & Plan Problem List: (1) Schizophrenia ICD Codes: F20.9 - Schizophrenia, unspecified Status: Acute Assessment & Plan BPs running a little on the low side. I will discontinue oral Risperdal since oral supplementation is not strictly required with Invega Sustenna and hypotension can occur with this medication. Plan to administer booster dose of Invega Sustenna after appropriate interval. Continue Depakote with plans to check a Depakote level, likely beginning of next week. Continue to monitor on the inpatient unit. Continue other medications and care as ordered. Patient may consent for medications. Justification for Cont. Inpt. Med changes. Complicating conditions. Impairment in reality construction. Risk for decompensation in less restrictive environment. Discharge Planning Pending psychiatric stabilization. Request HC Surrog/Guard Advoc?: Yes Problem Qualifiers (1) Schizophrenia: Qualified Codes: F20.0 - Paranoid schizophrenia Abdirahman Henley MD Dec 02, 2016 10:06
[2016-12-02 10:17] VITALS: BP 87/54; PULSE 71; RESP 18
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
[2016-12-02 18:24] VITALS: BP 148/71; PULSE 84; RESP 18; TEMP 98.1; O2SAT 100
[2016-12-02 18:25] VITALS: BP 94/53; PULSE 69; RESP 18; TEMP 98.7; O2SAT 100
[2016-12-03 05:27] VITALS: BP 88/51; PULSE 73; RESP 16; TEMP 97.4; O2SAT 96
[2016-12-03 08:10] VITALS: BP 90/56; PULSE 79; O2SAT 99
[2016-12-03] MEDS: REMOVE OLD PATCH T-DERMAL SCH (09:00)
[2016-12-03] MEDS: NICOTINE 21 MG/24 HR PATCH T-DERMAL SCH (09:00)
[2016-12-03] MEDS: BENZTROPINE MESYLATE 1 MG TAB PO SCH ×2 (09:00→21:41)
[2016-12-03] MEDS: DIVALPROEX DR 500 MG TABEC PO SCH ×2 (09:01→21:41)
--- NOTE | 2016-12-03 11:17 | HHI.PYPN ---
Subjective Remarks Patient seen and examined with counselor. Chart reviewed. Case discussed with nursing staff. On my examination today, patient remains quite guarded and paranoid. She had said yesterday that she was without stable housing, but she rebuffs all of our efforts to assist her with this problem by saying, "it's private." More irritable today versus yesterday, and she makes accusatory but vague comments about someone reporting something to the authorities, but her paranoia prevents her from providing any more detail. Denies side effects from medications. No physical complaints. No symptoms of symptomatic hypotension. Review of Systems ROS Limitations: Psychotic, Poor Historian Except as stated in HPI: all other systems reviewed are Neg Objective Alert: Yes [place]: Person, Place, Date Mood: Other (remains dysphoric) Affect: Restricted (restricted and quite irritable) Memory Intact: Comment (fair) Hallucinations: Other (denies AVH) Delusions: Yes Delusion Type: Paranoid (remains quite hypervigilant and paranoid) Suicidal: Ideation (no SI) Homicidal: Ideation (no HI) Insight/Judgment Poor Remarks No motoric abnormalities noted. Thought process linear, but full exploration of thought content is limited by paranoia. Speech somewhat terse and angry. Grooming and hygiene fair. Labs Labs reviewed. Vitals/IOs Vital Signs Date Time Temp Pulse Resp B/P (MAP) Pulse Ox O2 Delivery O2 Flow Rate FiO2 12/03/16 08:10 79 90/56 (67) 99 12/03/16 05:27 97.4 16 11/30/16 02:00 Room Air Historical BPs reviewed. It appears patient presents initially in the normal range and then becomes more hypotensive, perhaps as an effect of medications or this may represent her normal BP and initial BPs may represent elevation due to agitation. Assessment & Plan Problem List: (1) Schizophrenia ICD Codes: F20.9 - Schizophrenia, unspecified Status: Acute Assessment & Plan Invega Sustenna initial dose administered 12/01, and so booster dose cannot be administered before the beginning of next week. I am loath to add back oral Risperdal or another oral antipsychotic at this time to target ongoing psychotic symptoms lest we exacerbate hypotension, and so I think it is most prudent at this juncture to simply observe on the inpatient unit. I will continue her Depakote as ordered and plan to check a Depakote and ammonia level Tuesday morning and adjust the dose based on the level and patient's clinical presentation at that time. Continue to monitor on the inpatient unit. Continue other medications care as ordered. Justification for Cont. Inpt. Impairment in reality construction. Complicating conditions, namely the hypotension. Medication changes planned. High risk for decompensation in less restrictive environment. Discharge Planning Pending psychiatric stabilization Request HC Surrog/Guard Advoc?: Yes Problem Qualifiers (1) Schizophrenia: Qualified Codes: F20.0 - Paranoid schizophrenia Abdirahman Henley MD Dec 03, 2016 11:17
[2016-12-03 18:28] VITALS: BP 102/55; PULSE 72; RESP 16; TEMP 98.6; O2SAT 100
[2016-12-04 06:34] VITALS: BP 96/66; PULSE 76; RESP 16; TEMP 97.8; O2SAT 99
[2016-12-04] MEDS: REMOVE OLD PATCH T-DERMAL SCH (09:00)
[2016-12-04] MEDS: NICOTINE 21 MG/24 HR PATCH T-DERMAL SCH (09:00)
[2016-12-04] MEDS: DIVALPROEX DR 500 MG TABEC PO SCH ×2 (09:13→23:28)
[2016-12-04] MEDS: BENZTROPINE MESYLATE 1 MG TAB PO SCH ×2 (09:13→23:28)
--- NOTE | 2016-12-04 14:28 | HHI.PYPN ---
Subjective Remarks Pt seen and discussed with staff. She remains paranoid but it is improving. She is compliant with medications and denies side effects. Sleep improved. RN reports observing pt having conversations with self. Objective Alert: Yes [place]: Person, Place, Date Mood: Other (remains dysphoric) Affect: Restricted (restricted and quite irritable) Memory Intact: Comment (fair) Hallucinations: Other (denies AVH) Delusions: Yes Delusion Type: Paranoid (remains quite hypervigilant and paranoid) Suicidal: Ideation (no SI) Homicidal: Ideation (no HI) Insight/Judgment limited Vitals/IOs Vital Signs Date Time Temp Pulse Resp B/P (MAP) Pulse Ox O2 Delivery O2 Flow Rate FiO2 12/04/16 06:34 97.8 76 16 96/66 (76) 99 Assessment & Plan Problem List: (1) Schizophrenia ICD Codes: F20.9 - Schizophrenia, unspecified Status: Acute Assessment & Plan Continue current tx plan. Estimated LOS: days Justification for Cont. Inpt. risk of decompensation Request HC Surrog/Guard Advoc?: Yes Problem Qualifiers (1) Schizophrenia: Qualified Codes: F20.0 - Paranoid schizophrenia Claudine Da Silva MD Dec 04, 2016 14:28
[2016-12-04 18:44] VITALS: BP 92/64; PULSE 74; RESP 18; TEMP 97.8; O2SAT 100
[2016-12-05 06:32] VITALS: BP 85/50; PULSE 65; RESP 18; TEMP 98.6; O2SAT 96
[2016-12-05] MEDS: BENZTROPINE MESYLATE 1 MG TAB PO SCH (08:12)
[2016-12-05] MEDS: DIVALPROEX DR 500 MG TABEC PO SCH ×2 (08:12→22:49)
[2016-12-05] MEDS: NICOTINE 21 MG/24 HR PATCH T-DERMAL SCH (08:13)
[2016-12-05] MEDS: REMOVE OLD PATCH T-DERMAL SCH (08:13)
--- NOTE | 2016-12-05 15:51 | HHI.PYPN ---
Subjective Remarks Pt seen and discussed with staff. She remains paranoid but has not had any behavioral problems on unit. She is compliant with medications. No side effects. No SI/HI Objective Alert: Yes [place]: Person, Place, Date Mood: Other (remains dysphoric) Affect: Restricted (restricted and quite irritable) Memory Intact: Comment (fair) Hallucinations: Other (denies AVH) Delusions: Yes Delusion Type: Paranoid (remains quite hypervigilant and paranoid) Suicidal: Ideation (no SI) Homicidal: Ideation (no HI) Insight/Judgment poor Vitals/IOs Vital Signs Date Time Temp Pulse Resp B/P (MAP) Pulse Ox O2 Delivery O2 Flow Rate FiO2 12/05/16 06:32 98.6 65 18 85/50 (62) 96 Intake and Output 12/05/16 12/05/16 12/06/16 08:00 16:00 00:00 Intake Total 240 ml Balance 240 ml Assessment & Plan Problem List: (1) Schizophrenia ICD Codes: F20.9 - Schizophrenia, unspecified Status: Acute Assessment & Plan Continue current tx plan. Estimated LOS: days Justification for Cont. Inpt. risk of decompensation Request HC Surrog/Guard Advoc?: Yes Problem Qualifiers (1) Schizophrenia: Qualified Codes: F20.0 - Paranoid schizophrenia Claudine Da Silva MD Dec 05, 2016 15:51
[2016-12-05 18:34] VITALS: BP 101/58; PULSE 74; RESP 18; TEMP 98; O2SAT 100
[2016-12-05] MEDS: BENZTROPINE MESYLATE 2 MG TAB PO SCH (22:51)
[2016-12-06 04:51] VITALS: BP 98/53; PULSE 70; RESP 18; TEMP 98.1
[2016-12-06] MEDS: DIVALPROEX DR 500 MG TABEC PO SCH ×2 (08:49→21:00)
[2016-12-06] MEDS: BENZTROPINE MESYLATE 2 MG TAB PO SCH ×2 (08:49→21:00)
[2016-12-06] MEDS: NICOTINE 21 MG/24 HR PATCH T-DERMAL SCH (08:49)
[2016-12-06] MEDS: REMOVE OLD PATCH T-DERMAL SCH (08:51)
--- NOTE | 2016-12-06 12:34 | HHI.PYPN ---
Subjective Remarks Patient seen and examined with counselor and nurse. Chart reviewed. Case discussed with nursing staff. Per nursing staff, the patient has been seclusive and blunted. On my examination today, the patient says that she slept well overnight. However, she remains fairly paranoid and irritable. She insists that "people fuck with me" and also says that "people are trying to get into my business." She denies AVH but appears a little internally preoccupied. Denies side effects from medications. No physical complaints. Review of Systems ROS Limitations: Psychotic, Poor Historian Except as stated in HPI: all other systems reviewed are Neg Objective Alert: Yes [place]: Person, Place (at least) Mood: Other (irritable and dysphoric) Affect: Restricted Memory Intact: Comment (fair) Hallucinations: Other (denies AVH) Delusions: Yes Delusion Type: Paranoid Suicidal: Ideation (denies SI) Homicidal: Ideation (denies HI) Insight/Judgment Poor Remarks None abnormal motor movements noted. Thought process linear. Grooming and hygiene fair. Speech somewhat terse but otherwise within normal limits. Labs Test 12/06/16 10:40 Ammonia 38 MCMOL/L Valproic Acid (Depakene) Level 93 MCG/ML Labs reviewed. Depakote level within the therapeutic range. Ammonia level mildly elevated but no signs of hyperammonemic encephalopathy. Vitals/IOs Vital Signs Date Time Temp Pulse Resp B/P (MAP) Pulse Ox O2 Delivery O2 Flow Rate FiO2 12/06/16 04:51 98.1 70 18 98/53 (68) 12/05/16 18:34 100 Intake and Output 12/06/16 12/06/16 12/07/16 08:00 16:00 00:00 Intake Total 260 ml 260 ml Balance 260 ml 260 ml Assessment & Plan Problem List: (1) Schizophrenia ICD Codes: F20.9 - Schizophrenia, unspecified Status: Acute Assessment & Plan Patient remains to irritable and paranoid for safety discharge at this juncture. Blood pressures are improved, and so I think it is reasonable to administer booster dose of Invega Sustenna in hopes of bringing her psychotic symptoms under better control, and I have ordered this. I will continue her Depakote as ordered and start Carnitor for her hyperammonemia. Continue to monitor on the inpatient unit. Continue other medications and care as ordered. Justification for Cont. Inpt. Impairment in reality construction. Medication changes. High risk for decompensation in less restrictive environment. Discharge Planning Pending psychiatric stabilization. Anticipate adequate stabilization for safe discharge by the middle of the week. Problem Qualifiers (1) Schizophrenia: Qualified Codes: F20.0 - Paranoid schizophrenia Abdirahman Henley MD Dec 06, 2016 12:34
[2016-12-06] MEDS: levOCARNitine 10% ORAL SOLN 118 ML BTL PO SCH (18:03)
[2016-12-07 06:00] VITALS: BP 110/58; PULSE 87; RESP 16; TEMP 98; O2SAT 97
[2016-12-07] MEDS: REMOVE OLD PATCH T-DERMAL SCH (09:00)
[2016-12-07] MEDS: BENZTROPINE MESYLATE 2 MG TAB PO SCH ×2 (09:00→21:01)
[2016-12-07] MEDS: levOCARNitine 10% ORAL SOLN 118 ML BTL PO SCH ×3 (09:00→17:23)
[2016-12-07] MEDS ORDERED: PALIPERIDONE PALMITATE 156 MG/ML SYRINGE IM ONE (09:00)
[2016-12-07] MEDS: NICOTINE 21 MG/24 HR PATCH T-DERMAL SCH (09:00)
[2016-12-07] MEDS: DIVALPROEX DR 500 MG TABEC PO SCH ×2 (10:40→21:00)
--- NOTE | 2016-12-07 10:55 | PD.TTN ---
Patient Problems 1. Discharge planning 2. Medication compliance 3. Knowledge deficit 4. Lack of coping skills Progress Toward Goals Provider Present: Dr. Fátima Henley Provider Input: Dr. eHnley reported the patient continues to have an angry edge and he will assess her today for possible discharge. Nurse(s) Present: Kenia Nurse(s) Input: Nurse Kenia reported the patient's mood appeared "ok," and that she signed for her Invega injection. Per Kenia's report, the patient slept well and has not had any behavioral issues. Psychiatric Counselors Present: JARRET Perez Psych Therapist Input: Counselor reported the patient remains paranoid with an angry affect and is guarded when asked about her plans for housing following discharge. Patient reported she does not want anyone to know where she is. Group Spec/RT/OT/CARVAJAL Present: WEI Christie Group Spec/RT/OT/CARVAJAL Input: Stepan reported the patient attends select groups and presents with anger. Discharge Plan [facility] Documentation Scribe: JARRET Perez Date Resolved: Dec 07, 2016 Alexandra Mitchell Dec 07, 2016 10:55
--- NOTE | 2016-12-07 13:07 | HHI.PYPN ---
Subjective Remarks Patient seen and examined with nurse. Chart reviewed. Case discussed in treatment team. On my examination today, the patient remains exceedingly irritable and paranoid. Occupational therapist notes that this has been her presentation in unit activities as well. She continues to insist upon discharge but refuses to discuss in any meaningful detail her discharge plan on account of her paranoia. She makes exceedingly vague accusations about "whatever is going on." She accuses us of keeping her here for the insurance money. She rants on paranoid themes and generally monopolizes the conversation before concluding the interview and walking off. No side effects from medications. No physical complaints. Review of Systems ROS Limitations: Psychotic, Poor Historian Except as stated in HPI: all other systems reviewed are Neg Objective Alert: Yes [place]: Person, Place (at least) Mood: Angry Affect: Restricted Memory Intact: Comment (fair) Hallucinations: Other (denies AVH) Delusions: Yes Delusion Type: Paranoid (ongoing) Suicidal: Ideation (No SI) Homicidal: Ideation (No HI) Insight/Judgment Poor Remarks No motoric abnormalities noted Labs Labs reviewed. Vitals/IOs Vital Signs Date Time Temp Pulse Resp B/P (MAP) Pulse Ox O2 Delivery O2 Flow Rate FiO2 12/07/16 06:00 98.0 87 16 110/58 (75) 97 Intake and Output 12/07/16 12/07/16 12/08/16 08:00 16:00 00:00 Intake Total 840 ml Balance 840 ml Assessment & Plan Problem List: (1) Schizophrenia ICD Codes: F20.9 - Schizophrenia, unspecified Status: Acute Assessment & Plan Patient received a booster dose of Invega Sustenna today. She requires additional time on the unit for response to antipsychotic as she remains very paranoid. To consider addition of a second, oral antipsychotic acutely for stabilization. Continue Depakote as ordered. Continue to monitor on the inpatient unit. Continue other medications and care as ordered. Justification for Cont. Inpt. Impairment in reality construction. Risk for decompensation in less restrictive environment. Discharge Planning Pending psychiatric stabilization. Problem Qualifiers (1) Schizophrenia: Qualified Codes: F20.0 - Paranoid schizophrenia Abdirahman Henley MD Dec 07, 2016 13:07
[2016-12-07 17:17] VITALS: BP 101/58; PULSE 67; RESP 16; TEMP 98.7; O2SAT 100
[2016-12-08 06:19] VITALS: BP 90/56; PULSE 76; RESP 18; TEMP 97.8; O2SAT 96
[2016-12-08] MEDS: levOCARNitine 10% ORAL SOLN 118 ML BTL PO SCH ×2 (09:00→13:00)
[2016-12-08] MEDS: NICOTINE 21 MG/24 HR PATCH T-DERMAL SCH (09:00)
[2016-12-08] MEDS: REMOVE OLD PATCH T-DERMAL SCH (09:00)
[2016-12-08] MEDS: DIVALPROEX DR 500 MG TABEC PO SCH (10:15)
[2016-12-08] MEDS: BENZTROPINE MESYLATE 2 MG TAB PO SCH (10:16)
[2016-12-08] MEDS ORDERED: LEVO10%S PO (11:36)
[2016-12-08] MEDS ORDERED: BENZ0.5T PO (11:36)
[2016-12-08] MEDS ORDERED: PALI156P IM (11:36)
[2016-12-08] MEDS ORDERED: DIVA500T PO (11:36)
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
== END 2016-12-08 16:15 | disposition home or self-care (01) | DRG 885 ==
LOC: NEPD 11:01 → NEDA 11-30 11:54 → H270 11-30 14:48 → H260 12-02 14:30
PROVIDERS: ADMIT Psychiatry & Neurology Psychiatry; ATTEND Psychiatry & Neurology Psychiatry
DX: F20.0 Paranoid schizophrenia (principal); I95.9 Hypotension, unspecified; E72.20 Disorder of urea cycle metabolism, unspecified; R45.851 Suicidal ideations; F17.210 Nicotine dependence, cigarettes, uncomplicated; F90.9 Attention-deficit hyperactivity disorder, unspecified type; E87.6 Hypokalemia; Z91.5 Personal history of self-harm; Z91.14 Patient's other noncompliance with medication regimen
CPT/HCPCS: 80048; 80053; 80061; 80164; 80307; 82140; 83036; 84703; 85025; 96372; J1630; J2060; J2426